=== PATIENT | female | born 1995 | race Caucasian/White ===

== ENCOUNTER 2019-04-24 07:49 | Emergency (ER) | payer OTHER ==
[2019-04-24 08:12] LABS: Urine Blood NEGATIVE (NEG); Urine Glucose NEGATIVE (NEG); Urine Protein NEGATIVE (NEG); Urine pH 6.5 (5.0-7.0)
--- NOTE | 2019-04-24 08:13 | EDPHYS ---
Physician Documentation [facility] Name: Anusha Gunn Age: 23 yrs Sex: Female : 1995 Arrival Date: 04/24/2019 Time: 07:52 Bed 20 Private MD: ED Physician Patricio Carr HPI: 04/24 08:07 This 23 yrs old Female presents to ER via Ambulatory with complaints of Back snw Pain. 08:07 The patient presents with pain that is acute, with no known mechanism of injury. The snw symptoms are located in the low back. Onset: The symptoms/episode began/occurred acutely. The pain does not radiate. Associated signs and symptoms: Pertinent negatives: fever, joint pain. The problem was sustained from unknown cause. Severity of symptoms: At their worst the symptoms were mild, moderate. The patient has experienced a previous episode. The patient has not recently seen a physician. Historical: - Allergies: 08:01 No Known Allergies; sv - Home Meds: 08:01 Abilify oral oral [Active]; sv - PMHx: 08:01 Bipolar disorder; sv - PSHx: 08:01 None; sv - Immunization history:: Flu vaccine is up to date. - Coronavirus screen:: The patient has NOT traveled to [place], [place], or [place] in the past 14 days. Proceed with normal triage process as indicated. The patient has NOT had contact with known/suspected case of Coronavirus? Proceed with normal triage procedures. - Social history:: Smoking status: Patient denies any tobacco usage or history of. - Ebola Screening: : No symptoms or risks identified at this time. ROS: 08:05 Constitutional: Negative for fever, chills, and weight loss, Eyes: Negative for injury, snw pain, redness, and discharge, ENT: Negative for injury, pain, and discharge, Neck: Negative for injury, pain, and swelling, Cardiovascular: Negative for chest pain, palpitations, and edema, Respiratory: Negative for shortness of breath, cough, wheezing, and pleuritic chest pain, Abdomen/GI: Negative for abdominal pain, nausea, vomiting, diarrhea, and constipation, MS/Extremity: Negative for injury and deformity, Skin: Negative for injury, rash, and discoloration, Neuro: Negative for headache, weakness, numbness, tingling, and seizure, Psych: Negative for depression, anxiety, suicide ideation, homicidal ideation, and hallucinations. 08:05 Back: Positive for of the low back area. 08:05 : Positive for vaginal discharge. Exam: 08:05 Head/Face: Normocephalic, atraumatic. Eyes: Pupils equal round and reactive to light, snw extra-ocular motions intact. Lids and lashes normal. Conjunctiva and sclera are non-icteric and not injected. Cornea within normal limits. Periorbital areas with no swelling, redness, or edema. ENT: Nares patent. No nasal discharge, no septal abnormalities noted. Tympanic membranes are normal and external auditory canals are clear. Oropharynx with no redness, swelling, or masses, exudates, or evidence of obstruction, uvula midline. Mucous membranes moist. Neck: Trachea midline, no thyromegaly or masses palpated, and no cervical lymphadenopathy. Supple, full range of motion without nuchal rigidity, or vertebral point tenderness. No Meningismus. Chest/axilla: Normal chest wall appearance and motion. Nontender with no deformity. No lesions are appreciated. Cardiovascular: Regular rate and rhythm with a normal S1 and S2. No gallops, murmurs, or rubs. Normal PMI, no JVD. No pulse deficits. Respiratory: Lungs have equal breath sounds bilaterally, clear to auscultation and percussion. No rales, rhonchi or wheezes noted. No increased work of breathing, no retractions or nasal flaring. Abdomen/GI: Soft, non-tender, with normal bowel sounds. No distension or tympany. No guarding or rebound. No evidence of tenderness throughout. Back: No spinal tenderness. No costovertebral tenderness. Full range of motion. Skin: Warm, dry with normal turgor. Normal color with no rashes, no lesions, and no evidence of cellulitis. MS/ Extremity: Pulses equal, no cyanosis. Neurovascular intact. Full, normal range of motion. Neuro: Awake and alert, GCS 15, oriented to person, place, time, and situation. Cranial nerves II-XII grossly intact. Motor strength 5/5 in all extremities. Sensory grossly intact. Cerebellar exam normal. Normal gait. Psych: Awake, alert, with orientation to person, place and time. Behavior, mood, and affect are within normal limits. 08:05 Constitutional: The patient appears alert, awake, non-toxic. Vital Signs: 08:01 BP 102 / 68; Pulse 86; Resp 16; Temp 97; Pulse Ox 100% ; Weight 56.25 kg; Height 5 ft. sv 3 in. (160.02 cm); Pain 0/10; 08:01 Body Mass Index 21.97 (56.25 kg, 160.02 cm) sv MDM: 07:54 Patient medically screened. [facility] 09:17 Data reviewed: vital signs, nurses notes. Data interpreted: Pulse oximetry: on room air snw is 100 %. Interpretation: normal. Counseling: I had a detailed discussion with the patient and/or guardian regarding: the historical points, exam findings, and any diagnostic results supporting the discharge/admit diagnosis, lab results, the need for outpatient follow up, to return to the emergency department if symptoms worsen or persist or if there are any questions or concerns that arise at home. Counseling: I had a detailed discussion with the patient and/or guardian regarding: safe sex. Special discussion: Based on the history and exam findings, there is no indication for further emergent testing or inpatient evaluation. I discussed with the patient/guardian the need to see the OB Gyne specialist for further evaluation of the symptoms. I discussed with the patient/guardian the need to see the primary care provider for further evaluation of the symptoms. 04/24 07:55 Order name: Urine Culture [facility] 04/24 07:55 Order name: Urine Microscopic Only [facility] 04/24 08:07 Order name: Urine Dipstick--Ancillary (enter results); Complete Time: 08:14 eb 04/24 08:07 Order name: Urine --Ancillary (enter results); Complete Time: 08:14 eb 04/24 07:55 Order name: Urine Test (obtain specimen); Complete Time: 08:04 snw 04/24 07:55 Order name: Urine Dipstick-Ancillary (obtain specimen); Complete Time: 08:04 snw Administered Medications: 08:34 Drug: Zithromax 1 grams Route: PO; 08:34 Drug: Flagyl 2 grams Route: PO; 08:35 Drug: Rocephin (cefTRIAXone) 1 grams Route: IM; Site: right gluteus; Disposition: 04/24/19 08:12 Discharged to Home. Impression: Unprotected intercourse, vaginal discharge, Low back pain. - Condition is Stable. - Discharge Instructions: Back Pain, Adult, Sexually Transmitted Disease, Rehydration, Adult, Heat Therapy, Safe Sex. - Prescriptions for Doxycycline Hyclate 100 mg Oral Tablet - take 1 tablet by ORAL route every 12 hours; 28 tablet. - Work release form, Medication Reconciliation Form, Thank You Letter, Antibiotic Education, Prescription Opioid Use form. - Follow up: Emergency Department; When: As needed; Reason: Fever > 102 F, Worsening of condition. Follow up: Private Physician; When: 2 - 3 days; Reason: Recheck today's complaints, Continuance of care, Re-evaluation by your physician. Addendum: 04/26/2019 07:00 Co-signature as Attending Physician, Patricio Carr MD I agree with the assessment and c frey plan of care. Signatures: Dispatcher [employer] Neela Martinez, RN RN Patricio Bradford MD MD cha Therrien, Shelly, CLINICAL DATA MANAGEMENT MANAGER-C CLINICAL DATA MANAGEMENT MANAGER-Csnw Mendy Polanco RN RN Corrections: (The following items were deleted from the chart) 04/24 08:57 08:12 04/24/2019 08:12 Discharged to Home. Impression: Unprotected intercourse, vaginal sv discharge; Low back pain. Condition is Stable. Forms are Medication Reconciliation Form, Thank You Letter, Antibiotic Education, Prescription Opioid Use. Follow up: Emergency Department; When: As needed; Reason: Fever > 102 F, Worsening of condition. Follow up: Private Physician; When: 2 - 3 days; Reason: Recheck today's complaints, Continuance of care, Re-evaluation by your physician. snw
--- NOTE | 2019-04-24 08:13 | ER ---
Nurse's Notes [facility] Name: Anusha Gunn Age: 23 yrs Sex: Female : 1995 Arrival Date: 04/24/2019 Time: 07:52 Bed 20 Private MD: Diagnosis: Unprotected intercourse, vaginal discharge;Low back pain Presentation: 04/24 07:59 Presenting complaint: Patient states: yellow vaginal discharge x 2 weeks, low back pain sv x 3 days, has had unprotected intercourse recently. Transition of care: patient was not received from another setting of care. Onset of symptoms was March 2019. Risk Assessment: Do you want to hurt yourself or someone else? Patient reports no desire to harm self or others. Initial Sepsis Screen: Does the patient meet any 2 criteria? No. Patient's initial sepsis screen is negative. Does the patient have a suspected source of infection? No. Patient's initial sepsis screen is negative. Care prior to arrival: None. 07:59 Method Of Arrival: Ambulatory sv 07:59 Acuity: MARTHA 3 sv Triage Assessment: 08:03 General: Appears in no apparent distress. comfortable, slender, Behavior is calm, sv cooperative, appropriate for age. Pain: Denies pain. Neuro: Level of Consciousness is awake, alert, obeys commands, Oriented to person, place, time, situation, Moves all extremities. Full function Gait is steady. Respiratory: Respiratory effort is even, unlabored, Respiratory pattern is regular, symmetrical. : Reports discharge, from vagina that is malodorous, yellow, since 2 weeks. Derm: Skin is pink, warm \T\ dry. Musculoskeletal: Range of motion: intact in all extremities, Reports intermittent low back pain x 3 days. Historical: - Allergies: 08:01 No Known Allergies; sv - Home Meds: 08:01 Abilify oral oral [Active]; sv - PMHx: 08:01 Bipolar disorder; sv - PSHx: 08:01 None; sv - Immunization history:: Flu vaccine is up to date. - Coronavirus screen:: The patient has NOT traveled to [place], [place], or [place] in the past 14 days. Proceed with normal triage process as indicated. The patient has NOT had contact with known/suspected case of Coronavirus? Proceed with normal triage procedures. - Social history:: Smoking status: Patient denies any tobacco usage or history of. - Ebola Screening: : No symptoms or risks identified at this time. Screenin:38 Abuse screen: Denies threats or abuse. Nutritional screening: No deficits noted. Tuberculosis screening: No symptoms or risk factors identified. Fall Risk None identified. Assessment: 08:50 Reassessment: Patient appears in no apparent distress at this time. No changes from sv previously documented assessment. Patient and/or family updated on plan of care and expected duration. Pain level reassessed. Patient is alert, oriented x 3, equal unlabored respirations, skin warm/dry/pink. Vital Signs: 08:01 BP 102 / 68; Pulse 86; Resp 16; Temp 97; Pulse Ox 100% ; Weight 56.25 kg; Height 5 ft. sv 3 in. (160.02 cm); Pain 0/10; 08:01 Body Mass Index 21.97 (56.25 kg, 160.02 cm) sv ED Course: 07:52 Patient arrived in ED. mr 07:53 Leti Page FNP-C [facility]. snw 07:53 Patricio Carr MD is Attending Physician. snw 07:59 Neela Guerra RN is Primary Nurse. sv 08:00 Triage completed. sv 08:02 Arm band placed on Patient placed in an exam room, on a stretcher, on pulse oximetry. sv 08:02 Patient has correct armband on for positive identification. Placed in gown. Bed in low sv position. Call light in reach. Pulse ox on. NIBP on. Door closed. Head of bed elevated. 08:38 No provider procedures requiring assistance completed. Patient did not have IV access during this emergency room visit. Administered Medications: 08:34 Drug: Zithromax 1 grams Route: PO; ah 08:34 Drug: Flagyl 2 grams Route: PO; 08:35 Drug: Rocephin (cefTRIAXone) 1 grams Route: IM; Site: right gluteus; Outcome: 08:12 Discharge ordered by . snw 08:50 Patient left the ED. sv 08:50 Discharged to home ambulatory. sv 08:50 Condition: stable 08:50 Discharge instructions given to patient, Instructed on discharge instructions, follow up and referral plans. medication usage, safe sex practices, Demonstrated understanding of instructions, follow-up care, medications, Prescriptions given X 1. Addendum: 04/26/2019 09:28 Addendum: Culture Results: Positive urine culture. No further action required. Bacteria s s sensitive to prescribed antibiotic. Signatures: Neela Guerra RN RN sv Therrien, Shelly, CURTAIN CLEANER-C CURTAIN CLEANER-Csnw Emeli Vázquez mr America Hubbard RN RN Mendy Polanco RN RN Corrections: (The following items were deleted from the chart) 04/24 08:58 08:57 Patient left the ED. karmen peraza
[2019-04-24] MEDS ORDERED: AZITHROMYCIN 250 MG TAB ONE (08:15)
[2019-04-24] MEDS ORDERED: metroNIDAZOLE 500 MG TABLET ONE (08:15)
[2019-04-24] MEDS ORDERED: LIDOCAINE 1% MPF 2 ML AMPULE ONE (08:15)
[2019-04-24] MEDS ORDERED: CEFTRIAXONE 1000 MG/VIAL ONE (08:15)
[2019-04-24 09:03] VITALS: BP 102/68; TEMP 97; O2SAT 100
[2019-04-24 09:16] LABS: Urine Bacteria 20-50 /HPF (<20); Urine RBC <5 /HPF (NONE SEEN)
[2019-04-24 09:17] LABS: Urine Culture Reflex Order NOT NEEDED
== END 2019-04-24 08:57 | disposition home or self-care (01) ==
LOC: ER 07:49
DX: N89.8 Other specified noninflammatory disorders of vagina (principal); Z11.3 Encounter for screening for infections with a predominantly sexual mode of transmission; F31.9 Bipolar disorder, unspecified
CPT/HCPCS: 87088; 87086; 81025; 87077; 87186; 96372; 99283; J2001; 81003; 81015

== ENCOUNTER 2019-06-15 17:08 | Emergency (ER) | payer OTHER ==
--- NOTE | 2019-06-15 17:19 | EDPHYS ---
Physician Documentation [facility] Name: Anusha Gunn Age: 23 yrs Sex: Female : 1995 Arrival Date: 06/15/2019 Time: 17:10 Bed 17 Private MD: ED Physician Jorgito Mendoza HPI: 06/14 17:14 This 23 yrs old Female presents to ER via Unassigned with complaints of rn Probable Seizure. 17:14 The patient presents after having a single isolated seizure. Character of seizure(s): rn Motor activity: generalized, Incontinence: none, Circulation: the patient did not experience evidence of pulse disturbance. Seizure onset: just prior to arrival. Associated injury: The patient did not suffer any apparent associated injury. Current symptoms: Currently, the patient is not experiencing any symptoms. The patient has experienced similar episodes in the past. Per EMS, mother called 911 after patient had seizure. Single episode. Has had 2 times before. States tends to happen when doesn't take her abilify. Denies preceding chest pain/sob/abd pain. Denies drug use. Denies . States does not want any testing, that this has happened before and plans to see her psychiatrist. Denies any symptoms currently. . 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 tw2 Historical: - Allergies: 17:16 No Known Allergies; ll1 - PMHx: 17:16 Bipolar disorder; ll1 - Immunization history:: Adult Immunizations up to date. - Social history:: Smoking status: Patient denies any tobacco usage or history of. Patient/guardian denies using alcohol, street drugs, tobacco products. - Family history:: not pertinent. - Hospitalizations: : No recent hospitalization is reported. ROS: 17:14 Constitutional: Negative for fever, chills, and weight loss, Eyes: Negative for injury, rn pain, redness, and discharge, Neck: Negative for injury, pain, and swelling, Cardiovascular: Negative for chest pain, palpitations, and edema, Respiratory: Negative for shortness of breath, cough, wheezing, and pleuritic chest pain, Abdomen/GI: Negative for abdominal pain, nausea, vomiting, diarrhea, and constipation, MS/Extremity: Negative for injury and deformity, Skin: Negative for injury, rash, and discoloration, Neuro: Negative for headache, weakness, numbness, tingling Exam: 17:14 Constitutional: This is a well developed, well nourished patient who is awake, alert, rn and in no acute distress. Head/Face: Normocephalic, atraumatic. Eyes: Pupils equal round and reactive to light, extra-ocular motions intact. Lids and lashes normal. Conjunctiva and sclera are non-icteric and not injected. Cornea within normal limits. Periorbital areas with no swelling, redness, or edema. ENT: No oral trauma, mmm Cardiovascular: Regular rate and rhythm. No pulse deficits. Respiratory: No increased work of breathing, no retractions or nasal flaring. Abdomen/GI: soft, non-tender MS/ Extremity: Pulses equal, no cyanosis. Neurovascular intact. Full, normal range of motion. Equal circumference. Neuro: Awake and alert, GCS 15, oriented to person, place, time, and situation. Cranial nerves II-XII grossly intact. Motor strength 5/5 in all extremities. Sensory grossly intact. Cerebellar exam normal. Vital Signs: 17:11 BP 107 / 82; Pulse 117; Resp 16; Temp 98.3; Pulse Ox 96% ; Pain 0/10; ll1 17:23 Pulse 94; ll1 [place] Coma Score: 17:17 Eye Response: spontaneous(4). Verbal Response: oriented(5). Motor Response: obeys ll1 commands(6). Total: 15. MDM: 17:13 Patient medically screened. rn 17:14 Differential diagnosis: seizure. Data reviewed: vital signs, nurses notes. Refusal of rn service: The patient/guardian displays adequate decision making capability and despite a detailed discussion of alternatives, benefits, risks, and consequences refuses: CT Scan, all lab tests, Medications, all X-rays. Special discussion: I discussed with the patient/guardian in detail that at this point there is no indication for admission to the hospital. It is understood, however, that if the symptoms persist or worsen the patient needs to return immediately for re-evaluation. Based on the history and exam findings, there is no indication for further emergent testing or inpatient evaluation. I discussed with the patient/guardian the need to see the neurologist for further evaluation of the symptoms. I discussed with the patient/guardian the need to see the primary care provider for further evaluation of the symptoms. I discussed with the patient/guardian the need to see the psychiatrist for further evaluation of the symptoms. ED course: Patient again declines treatment or evaluation, has normal neuro exam, mother here, GCS 15, will dc home per her wishes. . Administered Medications: No medications were administered Disposition: 06/15/19 17:18 Discharged to Home. Impression: Epilepsy and recurrent seizures. - Condition is Stable. - Discharge Instructions: Seizure, Adult. - Medication Reconciliation Form, Thank You Letter, Antibiotic Education, Prescription Opioid Use form. - Follow up: Anish Varma MD; When: As needed; Reason: Recheck today's complaints, Re-evaluation by your physician. - Problem is an ongoing problem. - Symptoms have improved. Signatures: Jorgito Mendoza MD MD rn Rowena Son RN RN 2 Beatrice Sidhu RN RN ll1 Corrections: (The following items were deleted from the chart) 17:28 17:18 06/15/2019 17:18 Discharged to Home. Impression: Epilepsy and recurrent seizures. tw2 Condition is Stable. Forms are Medication Reconciliation Form, Thank You Letter, Antibiotic Education, Prescription Opioid Use. Follow up: Anish Varma; When: As needed; Reason: Recheck today's complaints, Re-evaluation by your physician. Problem is an ongoing problem. Symptoms have improved. rn
--- NOTE | 2019-06-15 17:19 | ER ---
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 EMS states she was postictal upon arrival. Patient states she feels fine. No pain. Alert and oriented, couldn't remember correct president. Coronavirus screen: Patient denies fever greater than 100.4F, cough, shortness of breath, or difficulty breathing. Proceed with normal triage process. Ebola Screen: Patient denies travel to an Ebola-affected area in the 21 days before illness onset. Initial Sepsis Screen: Does the patient meet any 2 criteria? HR > 90 bpm. No. Patient's initial sepsis screen is negative. Does the patient have a suspected source of infection? No. Patient's initial sepsis screen is negative. Risk Assessment: Do you want to hurt yourself or someone else? Patient reports no desire to harm self or others. 17:11 Acuity: MARTHA 4 ll1 17:11 Method Of Arrival: EMS: [facility] Triage Assessment: 17:17 General: Appears in no apparent distress. Behavior is calm, cooperative. Pain: Denies ll1 pain. Neuro: Level of Consciousness is awake, alert, Oriented to person, place, time, situation, Statistician Mathematical are equal bilaterally Moves all extremities. Full function Gait is steady, Speech is normal, Facial symmetry appears normal, Pupils are PERRLA, Denies headache Seizure activity reported prior to arrival. Type of seizure: clonic seizure. Seizure lasted approximately 3 minutes. Patient was postictal upon EMS arrival. 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 tw2 Historical: - Allergies: 17:16 No Known Allergies; ll1 - PMHx: 17:16 Bipolar disorder; ll1 - Immunization history:: Adult Immunizations up to date. - Social history:: Smoking status: Patient denies any tobacco usage or history of. Patient/guardian denies using alcohol, street drugs, tobacco products. - Family history:: not pertinent. - Hospitalizations: : No recent hospitalization is reported. Screenin:12 Abuse screen: Denies threats or abuse. Nutritional screening: No deficits noted. tw2 Tuberculosis screening: No symptoms or risk factors identified. Fall Risk None identified. Assessment: 17:21 General: Appears in no apparent distress. Behavior is calm, cooperative. Pain: Denies ll1 pain. Neuro: Level of Consciousness is awake, alert, Oriented to person, place, time, situation, Statistician Mathematical are equal bilaterally Moves all extremities. Full function Gait is steady, Speech is normal, Facial symmetry appears normal, Denies difficulty swallowing, headache. Cardiovascular: No deficits noted. Respiratory: No deficits noted. GI: No deficits noted. Vital Signs: 17:11 BP 107 / 82; Pulse 117; Resp 16; Temp 98.3; Pulse Ox 96% ; Pain 0/10; ll1 17:23 Pulse 94; ll1 [place] Coma Score: 17:17 Eye Response: spontaneous(4). Verbal Response: oriented(5). Motor Response: obeys ll1 commands(6). Total: 15. ED Course: 17:10 Patient arrived in ED. ll1 17:10 Beatrice Siduh, RN is Primary Nurse. ll1 17:10 Bed in low position. Call light in reach. Side rails up X2. Seizure precautions tw2 initiated. environmental monitoring technician on. Pulse ox on. NIBP on. 17:13 Jogrito Mendoza MD is Attending Physician. rn 17:14 Triage completed. ll1 17:17 Arm band placed on. ll1 17:18 Anish Varma MD is Referral Physician. rn 17:20 No provider procedures requiring assistance completed. Maintain EMS IV. Dressing ll1 intact. Good blood return noted. Site clean \T\ dry. Gauge \T\ site: 20 G R AC. 17:28 IV discontinued, intact, bleeding controlled, No redness/swelling at site. Pressure tw2 dressing applied. Administered Medications: No medications were administered Outcome: 17:18 Discharge ordered by . rn 17:27 Discharged to home ambulatory. tw2 17:27 Condition: stable 17:27 Discharge instructions given to patient, Instructed on discharge instructions, follow up and referral plans. Demonstrated understanding of instructions, follow-up care. 17:28 Patient left the ED. tw2 Signatures: Jorgito Mendoza MD MD rn Wise, Tara, RN RN tw2 Nahum, Lynsay, RN RN ll1
[2019-06-15 17:44] VITALS: BP 107/82; TEMP 98.3; O2SAT 96
== END 2019-06-15 17:28 | disposition home or self-care (01) ==
LOC: ER 17:08
DX: G40.802 Other epilepsy, not intractable, without status epilepticus (principal); F31.9 Bipolar disorder, unspecified
CPT/HCPCS: 99284

== ENCOUNTER 2019-06-28 11:47 | Emergency (ER) | payer OTHER ==
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
[2019-06-28 12:49] VITALS: BP 121/83; TEMP 97.9; O2SAT 100
== END 2019-06-28 12:36 | disposition home or self-care (01) ==
LOC: ER 11:47
DX: S09.93XA Unspecified injury of face, initial encounter (principal); S09.90XA Unspecified injury of head, initial encounter; Y04.2XXA Assault by strike against or bumped into by another person, initial encounter; Y93.9 Activity, unspecified; Y92.009 Unspecified place in unspecified non-institutional (private) residence as the place of occurrence of the external cause; F31.9 Bipolar disorder, unspecified; G40.909 Epilepsy, unspecified, not intractable, without status epilepticus
CPT/HCPCS: 70450; 70486; 72125; 76377; 99283

== ENCOUNTER 2020-04-24 10:11 | Emergency (ER) | payer OTHER ==
--- OUTSIDE RECORDS SUMMARY | 2020-04-24 10:38 | XMS REPORT | Summary of Care ---
:1995 Author Organization [facility] - Health Address [address] [place] [address] Care Team Providers Name Role Phone Chris Ward Primary Care Provider Encounter Details Date Type Department Care Team Description 02/01/2020 Orders Only [facility] Doctor Unassigned, No [address] [facility] [place] [address] [address] [facility] [place] [phone] Allergies No Known Allergiesdocumented as of this encounter (statuses as of 02/01/2020) Medications No known medicationsdocumented as of this encounter (statuses as of 02/01/2020) Active Problems No known active problemsdocumented as of this encounter (statuses as of 02/01/2020) Social History Tobacco Use Types Packs/Day Years Used Date Never Assessed Sex Assigned at Date Recorded Not on file COVID-19 Exposure Response Date Recorded In the last month, have you been in contact with No / Unsure 02/01/2020 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 documented as of this encounter Last Filed Vital Signs Not on filedocumented in this encounter Plan of Treatment Date Type Specialty Care Team Description 02/01/2020 Initial Obstetrics & Adum, Kellie Bernstein MD Visit Gynecology [address] [place] [address] [place] [address] Health Maintenance Due Date Last Done Comments VARICELLA VACCINES (1 of 2 - 2-dose 1998 childhood series) MENINGOCOCCAL B VACCINES (1 of 2 - 09/14/2007 Risk Bexsero 2-dose series) HPV VACCINES (1 - 2-dose series) 2008 Depression Screening 2009 CHLAMYDIA SCREENING 2013 DTaP,Tdap,and Td Vaccines (1 - 2016 Tdap) PAP SMEAR 2018 INFLUENZA VACCINE (#1) 2019 MENINGOCOCCAL VACCINE Aged Out No longer eligible based on patient's age to complete this topic PNEUMOCOCCAL 0-64 YEARS COMBINED Aged Out No longer eligible based on SERIES patient's age to complete this topic documented as of this encounter Procedures Procedure Name Priority Date/Time Associated Diagnosis Comme nts CONSENT/REFUSAL FOR Routine 02/01/2020 10:26 AM 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
--- OUTSIDE RECORDS SUMMARY | 2020-04-24 10:38 | XMS REPORT | Continuity of Care Document ---
:1995 Author Organization [facility] t Address [address] [place] [address] Care Team Providers Name Role Phone Amandeep Marrufo MD Attending Clinician 2, Lab Attending Clinician Unavailable Doctor Unassigned, Name Attending Clinician Unavailable Clinton Corral MD Attending Clinician Tony Brunson MD Attending Clinician Problems This patient has no known problems. Allergies, Adverse Reactions, Alerts This patient has no known allergies or adverse reactions. Medications This patient has no known medications. Procedures This patient has no known procedures. Encounters Start End Encounter Admission Attending Care Care Encounter Source Date/Time Date/Time Type Type Clinicians Facility Department ID 2020-03-13 2020-03-13 [id number] 00:00:00 00:00:00 Kellie Rivera [id number] [place] [id number] Professio [phone] 2020-02-04 2020-02-04 [id number] 00:00:00 00:00:00 Management Kellie Rivera [id number] [place] [id number] Professio [phone] [address] 2020-02-04 2020-02-04 [address]phone [id number] 00:00:00 00:00:00 Kellie Rivera [id number] [place] [id number] Professio [phone] [facility] [address] [facility] 2020-02-03 2020-02-03 Case Adum, [facility] [id number] 00:00:00 00:00:00 Management Kellie Bernstein Miguel [id number] [place] [id number] Professio [phone] [facility] [address] [facility] 2020-02-01 2020-02-01 Budget Analyst 2, Adc Lab [facility] [id number] 11:43:58 11:58:58 Visit Miguel [id number] [place] [id number] Professio [phone] [facility] [address] [facility] 2020-02-01 2020-02-01 Initial Adum, [facility] [id number] 10:30:19 11:39:38 Kellie Bernstein Miguel [id number] Visit [place] [id number] [facility] [phone] [facility] [address] [facility] 2020-02-01 2020-02-01 Orders Doctor [place] [id number] 00:00:00 00:00:00 Only Unassigned, SARAH [id number] [place] [facility] [phone] [id number] 2019-10-17 2019-10-17 Emergency Andreas Corral [facility] [id number] 15:45:22 21:48:00 Lauryn Brunson [id number] [place] [id number] [place] [phone] [id number] Results This patient has no known results.
--- OUTSIDE RECORDS SUMMARY | 2020-04-24 10:38 | XMS REPORT | Summary of Care ---
:1995 Author Organization [facility] Address [address] [place] [address] Care Team Providers Name Role Phone Chris Ward Primary Care Provider Reason for Visit Reason Comments New Medication Encounter Details Date Type Department Care Team Description 02/03/2020 Case Management [facility] Women's Adum, Kellie Bernstein MD New Medication Healthcare- [address] [facility] [address], [address] [place] [phone] Allergies No Known Allergiesdocumented as of this encounter (statuses as of 02/03/2020) Medications Medication Sig Dispensed Refills Start Date End Date Status aripiprazole (ABILIFY Take by mouth. 0 Active ORAL) azithromycin 500 mg Take 2 tablets by 2 tablet 0 02/03/2020 Active tabletIndications: mouth daily. 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 documented as of this encounter Last Filed Vital Signs Not on filedocumented in this encounter Progress Notes Adum, Kellie L, MD - 02/03/2020 5:17 PM CSTAzithromycin 1 g sent in for chlamydia infection. RN will notify patient documented in this encounter Plan of Treatment Health Maintenance Due Date Last Done Comments [...] this topic documented as of this encounter Results Not on filedocumented in this encounter Visit Diagnoses Diagnosis Chlamydia infection - Primary Unspecified chlamydial infection, in con ditions classified elsewhere and of unspecified site documented in this encounter Insurance Payer Benefit Plan / Group Subscriber ID Effective Dates Phone Address Type AETNA AETNA CHOICE POS II [id number] 2018-Present POS documented as of this encounter
--- OUTSIDE RECORDS SUMMARY | 2020-04-24 10:38 | XMS REPORT | Summary of Care ---
:1995 Author Organization [facility] Address [address] [place] [address] Care Team Providers Name Role Phone Chris Ward Primary Care Provider Reason for Visit Reason Comments Notification Encounter Details Date Type Department Care Team Description 03/13/2020 Telephone [facility] Women's Kellie Marrufo MD Notification Healthcare- [address] [facility], [facility] [address] [place] [address] [place] [address] [phone] Allergies No Known Allergiesdocumented as of this encounter (statuses as of 03/15/2020) Medications Medication Sig Dispensed Refills Start Date End Date Status aripiprazole (ABILIFY Take by mouth. 0 Active ORAL) azithromycin 500 mg Take 2 tablets by 2 tablet 0 02/03/2020 Active tabletIndications: mouth daily. Chlamydia infection Nitrofurantoin&Nit. Take 1 capsule by 20 capsule 0 02/04/2020 Active Macrocryst (MACROBID) mouth 2 (two) 100 mg times daily. capsuleIndications: Urinary tract infection without hematuria, site unspecified documented as of this encounter (statuses as of 03/15/2020) Active Problems No known active problemsdocumented as of this encounter (statuses as of 03/15/2020) Social History Tobacco Use Types Packs/Day Years Used Date Never Smoker Smokeless Tobacco: Never Used Alcohol Use Drinks/Week oz/Week Comments Not Currently Sex Assigned at Date Recorded Not on file documented as of this encounter Last Filed Vital Signs Not on filedocumented in this encounter Miscellaneous Notes Telephone Encounter - Stephanie Amaral, RN - 03/13/2020 10:46 AM CSTI have spoken with patient regarding her concerns. She states that someone named Mercedes in the clinic gave her results to a personal friend and she wanted to report them for HIPAA violation. I adviseddiane is not anyone in the clinic by that name. She advised she will call back if she can get the correct name. 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 documented in this encounter Plan of Treatment Health Maintenance Due Date Last Done Comments VARICELLA VACCINES (1 of 2 - 1998 2-dose childhood series) MENINGOCOCCAL B VACCINES (1 of 2 - 09/14/2007 Risk Bexsero 2-dose series) HPV VACCINES (1 - 2-dose series) 2008 Depression Screening 2009 DTaP,Tdap,and Td Vaccines (1 - 2016 Tdap) PAP SMEAR 2018 INFLUENZA VACCINE (#1) 2019 CHLAMYDIA SCREENING 01/31/2021 02/01/2020 MENINGOCOCCAL VACCINE Aged Out No longer eligible based on patient's age to complete this topic PNEUMOCOCCAL 0-64 YEARS COMBINED Aged Out No longer eligible based on SERIES patient's age to complete this topic documented as of this encounter Results Not on filedocumented in this encounter Insurance Payer Benefit Plan / Group Subscriber ID Effective Dates Phone Address Type AETNA AETNA CHOICE POS II [id number] 2018-Present POS documented as of this encounter
--- OUTSIDE RECORDS SUMMARY | 2020-04-24 10:38 | XMS REPORT | Summary of Care ---
:1995 Author Organization [facility] Address [address] [place] [address] Care Team Providers Name Role Phone Chris Ward Primary Care Provider Reason for Visit Reason Comments New Medication UTI Encounter Details Date Type Department Care Team Description 02/04/2020 Case Management [facility] Women's Adum, Kellie Bernstein MD New Medication (UTI) Healthcare- [address], [address] [place] [phone] Allergies No Known Allergiesdocumented as of this encounter (statuses as of 02/04/2020) Medications Medication Sig Dispensed Refills Start Date [...] as of this encounter (statuses as of 02/04/2020) Active Problems No known active problemsdocumented as of this encounter (statuses as of 02/04/2020) Social History Tobacco Use Types Packs/Day Years Used Date Never Smoker Smokeless Tobacco: Never Used Alcohol Use Drinks/Week oz/Week Comments Not Currently Sex Assigned at Date Recorded Not on file COVID-19 Exposure Response Date Recorded In the last month, have you been in contact with No / Unsure 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 documented as of this encounter Last Filed Vital Signs Not on filedocumented in this encounter Progress Notes Kellie Marrufo MD - 02/04/2020 10:05 AM CSTSee Result note Kellie Marrufo MD documented in this encounter Plan of Treatment [...] filedocumented in this encounter Visit Diagnoses Diagnosis Urinary tract infection without hematuri a, site unspecified - Primary documented in this encounter Insurance Payer Benefit Plan / Group Subscriber ID Effective Dates Phone Address Type AETNA AETNA CHOICE POS [place] [id number] 2018-Present POS documented as of this encounter
--- OUTSIDE RECORDS SUMMARY | 2020-04-24 10:38 | XMS REPORT | Summary of Care ---
:1995 Author Organization [facility] Address [address] [place] [address] Care Team Providers Name Role Phone Chris Ward Primary Care Provider Reason for Visit Reason Comments Results Encounter Details Date Type Department Care Team Description 02/04/2020 Telephone [facility] Women's Kellie Marrufo MD Results Healthcare- [address] [facility], [facility] [address] [place] [address] [place] [address] [phone] Allergies No Known Allergiesdocumented as of this [...] with No / Unsure 02/01/2020 10:22 AM COMMUNITY REPRESENTATIVE someone who was confirmed 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 documented as of this encounter Last Filed Vital Signs Not on filedocumented in this encounter Miscellaneous Notes Telephone Encounter - Jaymie Cuadra MA - 02/04/2020 11:02 AM CSTSee result note. Patient is aware of lab results and verbalized understanding. UNITY REPRESENTATIVE Telephone Encounter - Angelika Sylvester - 02/04/2020 8:45 AM CSTPatient is returning a call regarding lab results and is requesting a call back. documented in this encounter Plan of Treatment [...] Address Type AETNA AETNA CHOICE POS II [id number] 2018-Present POS documented as of this encounter
--- OUTSIDE RECORDS SUMMARY | 2020-04-24 10:38 | XMS REPORT | Summary of Care ---
:1995 Author Organization [facility] Address [address] [place] [address] Care Team Providers Name Role Phone Chris Ward Primary Care Provider Reason for Visit Reason Comments LAB Encounter Details Date Type Department Care Team Description 02/01/2020 Credit Risk Review Officer Visit [facility] AdumKellie MD [address] [place] [address] [address] [place] [address] Professional Office 2, [facility] Lab examination or Building Phlebotomy test, ne gative Lab result Professional Office Building [address] [facility] [address], [address] [place] [address] Allergies No Known Allergiesdocumented as of this encounter (statuses as of 02/01/2020) Medications Medication Sig Dispensed Refills Start Date End Date Status aripiprazole (ABILIFY Take by mouth. 0 Active ORAL) documented as of this encounter (statuses as [...] with No / Unsure 02/01/2020 10:22 AM SENIOR TECHNICAL PROJECT MANAGER someone who was confirmed 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 documented as of this encounter Last Filed Vital Signs Not on filedocumented in this encounter Nursing Notes Neela Gutierrez - 02/01/2020 11:45 AM CST Venipuncture collection performed by clean technique on the both anticubitus. Total of 2 attempts were made. Slight pressure and a bandage/dressing were applied to the site(s). The patient experienced no complications. The following specimens were processed according to instructions and sent to [facility] laboratories per lab order on 02/01/20: LT BLUE SST 1 RED LAV PPT DK GREEN (LiHep) DK GREEN (SodH) ANNE DK BLUE (K2) DK BLUE (S) ACD Blood Culture NIPT/NTD documented in this encounter Plan of Treatment [...] filedocumented in this encounter Visit Diagnoses Diagnosis examination or test, negative result documented in this encounter documented as of this encounter
--- OUTSIDE RECORDS SUMMARY | 2020-04-24 10:38 | XMS REPORT | Summary of Care ---
:1995 Author Organization [facility] Address [address] [place] [address] Care Team Providers Name Role Phone Chris Ward Primary Care Provider Reason for Visit Reason Comments New OB Visit Encounter Details Date Type Department Care Team Description 02/01/2020 Initial [facility] Women's Adum, Isael Smith regnancy examination or test, negative result (Primary Dx); Visit Healthcare- MD Routine screening for STI (sexually varela smitted infection); [address] Urinary frequency [address] [facility] [address] [place] [address] Allergies No Known Allergiesdocumented as of this [...] with No / Unsure 02/01/2020 10:22 AM HARNESS WORKER someone who was confirmed 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 documented as of this encounter Last Filed Vital Signs Vital Sign Reading Time Taken Comments Blood Pressure 101/70 02/01/2020 10:51 AM HARNESS WORKER Pulse 87 02/01/2020 10:51 AM HARNESS WORKER Temperature 36.7 C (98.1 F) 02/01/2020 10:51 AM HARNESS WORKER Respiratory Rate 18 02/01/2020 10:51 AM HARNESS WORKER Oxygen Saturation - - Inhaled Oxygen Concentration - - Weight 55.8 kg (123 lb) 02/01/2020 10:51 AM HARNESS WORKER Height 160 cm (5' 3") 02/01/2020 10:51 AM HARNESS WORKER Body Mass Index 21.79 02/01/2020 10:51 AM HARNESS WORKER documented in this encounter Progress Notes Klelie Marrufo MD - 02/01/2020 10:30 AM CST Chief complaint: Chief Complaint Patient presents with New OB Visit Anusha Gunn is a 24 year-old who presents to clinic with concerns of being . Patient reports regular cycles and that her LMP was 01/04 but she took UPT at home because she had an random episode of unprovoked vaginal bleeding on 01/23 or 01/24. The bleeding was very light, last 3hours with no associated pelvic or abdominal pain. UPT was faintly positive and her friend told her it could be implantation bleeding. UPT in the office today was negative. She also reports recent increased frequency of micturition with no dysuria or hematuria. She declined pelvic examination but accepted GC/Clamydia screening- this will be done from a urine sample Histories OB History Para Term AB Living 2 2 SAB TAB Ectopic Multiple Live Births # Outcome Date GA Lbr Froilan/2nd Weight Sex Delivery Anes PTL Lv 2 AB 2019 1 AB Past Medical History: Diagnosis Date Anxiety Bipolar 1 disorder Family History Problem Relation Age of Onset No Significant Medical Problems Mother No Significant Medical Problems Father Cancer Maternal Grandmother Family Status Relation Name Status Mo Alive Fa Alive MGMo (Not Specified) No past surgical history on file. Social History Socioeconomic History Marital status: Single Spouse name: Not on file Number of children: Not on file Years of education: Not on file Highest education level: Not on file Occupational History Not on file Social Needs Financial resource strain: Not on file Food insecurity Worry: Not on file Inability: Not on file Transportation needs Medical: Not on file Non-medical: Not on file Tobacco Use Smoking status: Never Smoker Smokeless tobacco: Never Used Substance and Sexual Activity Alcohol use: Not Currently Drug use: Not Currently Sexual activity: Yes Partners: Male control/protection: None Lifestyle Physical activity Days per week: Not on file Minutes per session: Not on file Stress: Not on file Relationships Social connections Talks on phone: Not on file Gets together: Not on file Attends shinto service: Not on file Active member of club or organization: Not on file Attends meetings of clubs or organizations: Not on file Relationship status: Not on file Intimate partner violence Fear of current or ex partner: Not on file Emotionally abused: Not on file Physically abused: Not on file Forced sexual activity: Not on file Other Topics Concern Not on file Social History Narrative Patient feels safe at home, denies abuse. Social History Substance and Sexual Activity Sexual Activity Yes Partners: Male control/protection: None Genetic Screen Autism / Mental Retardation: No [place] Disease: No Congenital Heart Defect: No Cystic Fibrosis: No Down Syndrome: No Familial Dysautonomia: No Hemophilia or other Blood Disorders: No Fannin Chorea: No Maternal Metabolic Disorder--specify (eg. Type 1 Diabetes, PKU): No Muscular Dystrophy: No Neural Tube Defect: No Recurrent Loss or a Stillbirth: No Sickle Cell Disease or Trait: No Moo Sachs: No Teratological Substances (specify type & strength/dose) since LMP: No Thalassemia: No Other Inherited Genetic or Chromosomal Disorder (specify): No Labs No new labs Radiology No new radiology. Allergies Anusha has No Known Allergies. Medications Anusha has a current medication list which includes the following prescription(s): aripiprazole. Review of Systems Constitutional: Negative. HENT: Negative. Eyes: Negative. Respiratory: Negative. Breasts: Negative. Cardiovascular: Negative. Gastrointestinal: Negative. Genitourinary: Negative. Musculoskeletal: Negative. Skin: Negative. Neurological: Negative. Psychiatric/Behavioral: Negative. Endocrine: Endocrine negative BP 101/70 (BP Location: Left arm, Patient Position: Sitting, BP CUFF SIZE: Adult Medium) | Pulse 87 | Temp 36.7 C (98.1 F) (Oral) | Resp 18 | Ht 5' 3" (1.6 m) | Wt 123 lb (55.8 kg) | LMP 01/05/2020 | BMI 21.79 kg/m Pregravid BMI: Could not be calculated Physical Exam Vitals reviewed. Constitutional: She is oriented to person, place, and time. She appears well- developed and well-groomed. Neuro/Psychiatric: She has a normal mood and affect. She is oriented to person, place, and time. Skin: Skin normal. Assessment/Plan examination or test, negative result (primary encounter diagnosis) Comment:Explained that her UPT was negative today so will offer a serum hcg for confirmation- which she accepted Plan: POCT TEST, HCG, QUANTITATIVE, , GC & CHLAMYDIA AMPLIFIED ASSAY, URINE CULTURE, POCT URINALYSIS W/O SPECIFIC GRAVITY, TRICHOMONAS AMPLIFIED ASSAY, URINE CULTURE Routine screening for STI (sexually transmitted infection) Plan: GC & CHLAMYDIA AMPLIFIED ASSAY, TRICHOMONAS AMPLIFIED ASSAY Urinary frequency UA showed trace LE and protein- culture sent off Plan: URINE CULTURE, POCT URINALYSIS W/O SPECIFIC GRAVITY, URINE CULTURE This visit did not involve counseling and coordination that comprised more than 50% of the visit time. Kellie Marrufo MD documented in this encounter Plan of Treatment Name Type Priority Associated Diagnoses Order S chedule HCG, QUANTITATIVE, LAB Routine examination or 48 hours for 3 test, negative result Occurr ences starting 02/01/2020 unti l 03/01/2020 GC & CHLAMYDIA AMPLIFIED LAB Routine Routine screenin g for Ordered: 02/01/2020 ASSAY STI (sexually transmitted infection) URINE CULTURE LAB Routine Urinary frequency Expected: 02/01/2020, Expires: 2020 TRICHOMONAS AMPLIFIED LAB Routine Routine screening f or Ordered: 02/01/2020 ASSAY STI (sexually transmitted infection) Health Maintenance Due Date Last Done Comments [...] Name Priority Date/Time Associated Diagnosis Comme nts POCT URINALYSIS W/O Routine 02/01/2020 Urinary frequency Res ults for this SPECIFIC GRAVITY procedure a re in the results section . POCT TEST Routine 02/01/2020 examination Results for this or test, negative procedure are in the result results section . documented in this encounter Results POCT URINALYSIS W/O SPECIFIC GRAVITY (02/01/2020) Pathologist Sig nature POCT PH U 7 5 - 8 mg/dl POCT U LEUK EST Trace Negative - Negative POCT U NIT Negative Negative - Negative POCT U PROT Trace Negative - Negative POCT U GLU Negative Negative - Negative POCT U KETONE Negative Negative - Negative POCT U BLD Negative Negative - Negative Specimen Urine - URINE, CLEAN CATCH POCT TEST (02/01/2020) Pathologist Sig nature POCT PREG Negative On board controls acceptable Yes with C Line POCT PREG LOT # POCT PREG TEST DATE Specimen Urine - URINE, CLEAN CATCH documented in this encounter Visit Diagnoses Diagnosis examination or test, negative result - Primary Routine screening for STI (sexually varela smitted infection) Screening examination for venereal disea se Urinary frequency documented in this encounter documented as of this encounter
--- NOTE | 2020-04-24 12:46 | ER ---
Nurse's Notes [facility] Name: Anusha Gunn Age: 24 yrs Sex: Female : 1995 Arrival Date: 04/24/2020 Time: 10:15 Bed 30 Private MD: Diagnosis: Foreign body in vulva and vagina-removed Presentation: 04/24 11:14 Chief complaint: Patient states: didn't have a tampon so I used a make up sponge for my ca1 menstrual bleed. Can't fine it now. Been there since 3 days ago. Denies pain. Coronavirus screen: Client denies travel out of the [place] in the last 14 days. At this time, the client does not indicate any symptoms associated with coronavirus-19. Ebola Screen: Patient negative for fever greater than or equal to 101.5 degrees Fahrenheit, and additional compatible Ebola Virus Disease symptoms Patient denies exposure to infectious person. Patient denies travel to an Ebola-affected area in the 21 days before illness onset. No symptoms or risks identified at this time. Initial Sepsis Screen: Does the patient meet any 2 criteria? No. Patient's initial sepsis screen is negative. Does the patient have a suspected source of infection? No. Patient's initial sepsis screen is negative. Risk Assessment: Do you want to hurt yourself or someone else? Patient reports no desire to harm self or others. Onset of symptoms was April 24, 2020. 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 - Social history:: Smoking status: Patient denies any tobacco usage or history of. Screenin:44 Abuse screen: Denies threats or abuse. Denies injuries from another. Nutritional zb screening: No deficits noted. Tuberculosis screening: No symptoms or risk factors identified. Fall Risk None identified. Assessment: 12:41 General: Appears in no apparent distress. comfortable, Behavior is calm, cooperative, zb appropriate for age. Pain: Denies pain. Neuro: Level of Consciousness is awake, alert, obeys commands, Oriented to person, place, time. Cardiovascular: No deficits noted. Respiratory: No deficits noted. GI: Abdomen is flat, non-distended. 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 EENT: No deficits noted. Derm: Skin is intact, is healthy with good turgor, Skin is dry, Skin is normal, Skin temperature is warm. Musculoskeletal: Capillary refill < 3 seconds, in bilateral fingers. Range of motion: intact in all extremities. Vital Signs: 11:14 BP 100 / 72; Pulse 100; Resp 16 S; Temp 97.9(TE); Pulse Ox 100% on R/A; Weight 56.7 kg ca1 (R); Height 5 ft. 3 in. (160.02 cm) (R); Pain 0/10; 12:53 BP 110 / 70; Pulse 92; Resp 16; Pulse Ox 100% on R/A; zb 11:14 Body Mass Index 22.14 (56.70 kg, 160.02 cm) ca1 ED Course: 10:15 Patient arrived in ED. ag5 11:16 Triage completed. ca1 11:17 Arm band placed on right wrist. ca1 12:21 Patricio Dempsey PA is PHCP. cp 12:21 Lorin Hill MD is Attending Physician. cp 12:40 Denisha Burris RN is Primary Nurse. zb 12:44 Patient has correct armband on for positive identification. Door closed. Noise zb minimized. 12:44 No provider procedures requiring assistance completed. Patient did not have IV access zb during this emergency room visit. Administered Medications: 12:52 Drug: Augmentin 875 mg Route: PO; zb 12:53 Follow up: Response: Medication administered at discharge. zb Outcome: 12:45 Discharge ordered by MD. cp 12:53 Discharged to home ambulatory. zb 12:53 Condition: stable 12:53 Discharge instructions given to patient, Instructed on discharge instructions, follow up and referral plans. medication usage, women health and period education Demonstrated understanding of instructions, follow-up care, medications. 12:54 Patient left the ED. zb Signatures: Patricio Dempsey PA PA cp Acob, Cheryl, RN RN ca1 Lucio Cash ag5 Denisha Burris, RN RN zb
--- NOTE | 2020-04-24 12:47 | EDPHYS ---
Physician Documentation [facility] Name: Anusha Gunn Age: 24 yrs Sex: Female : 1995 Arrival Date: 04/24/2020 Time: 10:15 Bed 30 Private MD: ED Physician Lorin Hill HPI: 04/24 12:40 This 24 yrs old Female presents to ER via Ambulatory with complaints of cp Foreign body In Vagina. 12:40 The patient presents with vaginal discharge, that is malodorous vaginal foreign body. cp Onset: The symptoms/episode began/occurred 3 day(s) ago. Associated signs and symptoms: Pertinent negatives: fever, abdominal pain. Severity of symptoms: in the emergency department the symptoms are unchanged, despite home interventions. Patient reports placing make-up sponge in vagina for vaginal bleeding 3 days ago. Unable to retrieve sponge. Denies fever, denies abdominal pain. 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 - Social history:: Smoking status: Patient denies any tobacco usage or history of. ROS: 12:42 Constitutional: Negative for body aches, chills, fever, poor PO intake. cp 12:42 Cardiovascular: Negative for chest pain, palpitations. cp 12:42 Respiratory: Negative for cough, shortness of breath, wheezing. 12:42 Abdomen/GI: Negative for abdominal pain, nausea, vomiting, and diarrhea. 12:42 : Positive for vaginal foreign body, Negative for urinary symptoms. 12:42 Neuro: Negative for altered mental status, headache, weakness. 12:42 All other systems are negative. Exam: 12:44 Constitutional: The patient appears in no acute distress, alert, awake, comfortable, cp non-toxic, well developed, well nourished. 12:44 Head/Face: Normocephalic, atraumatic. cp 12:44 Eyes: Periorbital structures: appear normal, Sclera: no appreciated abnormality, Lids and lashes: appear normal, bilaterally. 12:44 Chest/axilla: Inspection: normal. 12:44 Cardiovascular: Rate: normal, Rhythm: regular. 12:44 Respiratory: the patient does not display signs of respiratory distress, Respirations: normal, no use of accessory muscles, no retractions, labored breathing, is not present. 12:44 Abdomen/GI: Inspection: abdomen appears normal, Palpation: abdomen is soft and non-tender, in all quadrants. 12:44 : Pelvic Exam: External exam: is normal, Speculum exam: no bleeding is noted, no cervicitis, os that is closed, bimanual exam reveals no cervical motion tenderness, no uterine tenderness, no adnexa tenderness or masses bilaterally, discharge, malodorous, brown, the nurse was present for the exam. 12:44 Skin: cellulitis, is not appreciated, no rash present. cp Vital Signs: 11:14 BP 100 / 72; Pulse 100; Resp 16 S; Temp 97.9(TE); Pulse Ox 100% on R/A; Weight 56.7 kg ca1 (R); Height 5 ft. 3 in. (160.02 cm) (R); Pain 0/10; 12:53 BP 110 / 70; Pulse 92; Resp 16; Pulse Ox 100% on R/A; zb 11:14 Body Mass Index 22.14 (56.70 kg, 160.02 cm) ca1 Procedures: 12:42 Foreign Body Removal: make-up sponge, from the vagina, by ring forceps. The patient cp tolerated the removal well. MDM: 12:25 Patient medically screened. cp 12:45 Differential diagnosis: urinary tract infection, vaginosis, sepsis, toxic shock cp syndrome. 12:45 Data reviewed: vital signs, nurses notes, and as a result, I will discharge patient. cp Counseling: I had a detailed discussion with the patient and/or guardian regarding: the historical points, exam findings, and any diagnostic results supporting the discharge/admit diagnosis, to return to the emergency department if symptoms worsen or persist or if there are any questions or concerns that arise at home. Response to treatment: the patient's symptoms have markedly improved after treatment, and as a result, I will discharge patient. 04/24 12:25 Order name: Pelvic Exam Setup; Complete Time: 12:41 cp Administered Medications: 12:52 Drug: Augmentin 875 mg Route: PO; zb 12:53 Follow up: Response: Medication administered at discharge. zb Disposition: 13:00 Chart complete. cp 18:18 Co-signature as Attending Physician, Lorin Hill MD. ma2 Disposition: 04/24/20 12:45 Discharged to Home. Impression: Foreign body in vulva and vagina - removed. - Condition is Stable. - Discharge Instructions: Vaginal Foreign Body. - Prescriptions for Augmentin 875- 125 mg Oral Tablet - take 1 tablet by ORAL route every 12 hours for 10 days; 20 tablet. - Medication Reconciliation Form, Thank You Letter, Antibiotic Education, Prescription Opioid Use form. - Follow up: Private Physician; When: 1 - 2 days; Reason: Worsening of condition. - Problem is new. - Symptoms have improved. Signatures: Patricio Dempsey PA PA cp Alzahri, Mohammad, MD MD wv2 Jazmin Negron RN Denisha Knight RN RN zcarlos Corrections: (The following items were deleted from the chart) 12:54 12:45 04/24/2020 12:45 Discharged to Home. Impression: Foreign body in vulva and vagina zb - removed. Condition is Stable. Forms are Medication Reconciliation Form, Thank You Letter, Antibiotic Education, Prescription Opioid Use. Follow up: Private Physician; When: 1 - 2 days; Reason: Worsening of condition. Problem is new. Symptoms have improved. cp
[2020-04-24] MEDS ORDERED: AMOX/K CLAV 875 MG TAB ONE (13:03)
[2020-04-24 13:28] VITALS: BP 154/86; TEMP 97.7; O2SAT 100
== END 2020-04-24 12:54 | disposition home or self-care (01) ==
LOC: ER 10:11
DX: T19.2XXA Foreign body in vulva and vagina, initial encounter (principal); X58.XXXA Exposure to other specified factors, initial encounter
CPT/HCPCS: 99283

== ENCOUNTER 2020-06-11 10:25 | Emergency (ER) | payer OTHER ==
--- OUTSIDE RECORDS SUMMARY | 2020-06-11 10:28 | XMS REPORT | Continuity of Care Document ---
:1995 Author Organization [facility] t Address [address] [place] [address] Care Team Providers Name Role Phone Amandeep [...] Clinicians Facility Department ID 2020-03-13 2020-03-13 [phone] 00:00:00 00:00:00 Kellie Rivera [id number] [place] [id number] Professio [phone] [address] 2020-02-04 2020-02-04 [facility] [id number] 00:00:00 00:00:00 Management Kellie Rivera [id number] [place] [id number] Professio [phone] [address] 2020-02-04 2020-02-04 [phone] 00:00:00 00:00:00 Kellie Rivera [id number] [place] [id number] Professio [phone] [facility] [address] [facility] 2020-02-03 2020-02-03 Case Adum, [facility] [id number] 00:00:00 00:00:00 Management Kellie Bernstein Miguel [id number] [place] [id number] Professio [phone] [facility] [address] [facility] 2020-02-01 2020-02-01 Merchant Miller 2, Adc Lab [facility] [id number] 11:43:58 11:58:58 Visit Miguel [id number] [place] [id number] Professio [phone] [facility] 353 [facility] 2020-02-01 2020-02-01 Initial Adum, [facility] [id number] 10:30:19 11:39:38 Kellie Bernstein Miguel [id number] Visit [place] [id number] [facility] [phone] [facility] 134 [facility] 2020-02-01 2020-02-01 Orders Doctor [place] [id number] 00:00:00 00:00:00 Only Unassigned, SARAH [id number] [place] [facility] [phone] [id number] 2019-10-17 2019-10-17 Emergency Andreas Corral [facility] 1.2.84 [id number] [id number] 15:45:22 21:48:00 Lauryn Brunson [id number] [place] [id number] [place] [phone] [phone] Results This patient has no known results.
[2020-06-11 11:22] LABS: Urine Blood NEGATIVE (NEG); Urine Glucose NEGATIVE (NEG); Urine Protein NEGATIVE (NEG)
[2020-06-11 11:42] LABS: Urine Amorphous Sediment 3+ /HPF (NONE SEEN); Urine Bacteria <20 /HPF (<20); Urine RBC NONE SEEN /HPF (NONE SEEN)
[2020-06-11 12:05] LABS: Absolute Lymphocytes (CBC) 2.8 K/uL (0.7-4.9); Basophils % 0.6 % (0-1.3); Hematocrit 38.9 % (36.0-45.0); Lymphocytes % 49.6 % (15.3-44.8); MPV 9.3 fL (7.6-11.3); RBC Red Blood Cell Count 4.41 M/uL (3.86-4.86)
[2020-06-11 12:32] LABS: ALT/SGPT 22 U/L (12-78); AST/SGOT 26 U/L (15-37); Albumin 3.4 g/dL (3.4-5.0); Alkaline Phosphatase 94 U/L (45-117); BUN Blood Urea Nitrogen 11 mg/dL (7-18); Bicarbonate 31 mmol/L (21-32); Bilirubin Direct < 0.1 mg/dL (0-0.2); Bilirubin Total 0.2 mg/dL (0.2-1.0); Glucose Level 65 mg/dL (74-106); Potassium 3.6 mmol/L (3.5-5.1); Protein, Total 7.1 g/dL (6.4-8.2); Sodium Level 142 mmol/L (136-145)
[2020-06-11 12:44] LABS: HCG, Quantitative < 1 mIU/mL (1-3)
[2020-06-11 13:25] LABS: Blood Morphology Comment NOT SEEN (NOT SEEN); Platelet Estimate ADEQ
--- NOTE | 2020-06-11 13:36 | EDPHYS ---
Physician Documentation [facility] Name: Anusha Gunn Age: 24 yrs Sex: Female : 1995 Arrival Date: 06/11/2020 Time: 10:26 Bed 19 Private MD: ED Physician Lorin Hill HPI: 06/11 10:59 This 24 yrs old Female presents to ER via Ambulatory with complaints of cp Vaginal Discharge. 10:59 The patient presents with vaginal discharge, that is brown discharge. Onset: The cp symptoms/episode began/occurred for past several months. Associated signs and symptoms: Pertinent positives: irregular menstrual cycle, Pertinent negatives: constipation, cramping, diarrhea, dysuria, fever. 10:59 The patient is sexually active, reports multiple partners, does not use protection cp during intercourse. 10:59 The patient's method of control includes nothing. cp 11:00 Patient reports sharing an intravenous needle 3 months ago with HIV positive person. 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 ROS: 11:05 Abdomen/GI: Negative for abdominal pain, nausea, vomiting, and diarrhea. cp 11:05 Constitutional: Negative for fever. cp 11:05 : Positive for vaginal discharge, Negative for urinary symptoms, vaginal bleeding. 11:05 Neuro: Negative for altered mental status, headache, weakness. 11:05 All other systems are negative. Exam: 11:14 Head/Face: Normocephalic, atraumatic. cp 11:14 Constitutional: The patient appears in no acute distress, alert, awake, comfortable, non-toxic, well developed, well nourished. 11:14 Eyes: Periorbital structures: appear normal, Conjunctiva: normal, no exudate, no injection, Lids and lashes: appear normal, bilaterally. 11:14 ENT: External ear(s): are unremarkable, Nose: is normal, Mouth: Lips: moist, Posterior pharynx: Airway: no evidence of obstruction, patent. 11:14 Chest/axilla: Inspection: normal. 11:14 Cardiovascular: Rate: normal. 11:14 Respiratory: the patient does not display signs of respiratory distress, Respirations: normal, no use of accessory muscles, no retractions, labored breathing, is not present. 11:14 Abdomen/GI: Inspection: abdomen appears normal, Palpation: abdomen is soft and non-tender, in all quadrants, rebound tenderness, is not appreciated, voluntary guarding, is not appreciated, involuntary guarding, is not appreciated. 11:14 Back: pain, is absent, ROM is normal. 11:44 : Pelvic Exam: External exam: is normal, Speculum exam: no bleeding is noted, no cp cervicitis, os that is closed, bimanual exam reveals no cervical motion tenderness, no uterine tenderness, no adnexa tenderness or masses bilaterally, discharge, clear, a female draw frame tender was present for the exam, Sexual behavior: the patient is sexually active, and reports a single partner, method of control is none. Vital Signs: 10:29 BP 108 / 67; Pulse 85; Resp 17; Temp 97.8; Pulse Ox 100% ; Weight 58.51 kg; Height 5 rb3 ft. 3 in. (160.02 cm); Pain 0/10; 11:27 BP 100 / 69; Pulse 81; Resp 16; Pulse Ox 100% ; rb3 12:25 BP 103 / 67; Pulse 85; Resp 16; Pulse Ox 99% ; rb3 13:22 BP 100 / 66; Pulse 81; Resp 17; Pulse Ox 100% ; rb3 10:29 Body Mass Index 22.85 (58.51 kg, 160.02 cm) rb3 MDM: 10:43 Patient medically screened. cp 13:33 Data reviewed: vital signs, nurses notes, lab test result(s), I have discussed the cp patient's presentation/case with the attending Emergency Department Physician; and as a result, I will discharge patient. 13:33 Counseling: I had a detailed discussion with the patient and/or guardian regarding: the cp historical points, exam findings, and any diagnostic results supporting the discharge/admit diagnosis, lab results, to return to the emergency department if symptoms worsen or persist or if there are any questions or concerns that arise at home. 06/11 10:50 Order name: Urine Microscopic Only; Complete Time: 12:20 cp 06/11 10:54 Order name: Urine Dipstick--Ancillary (enter results); Complete Time: 12:20 eb 06/11 10:54 Order name: Urine --Ancillary (enter results); Complete Time: 12:20 eb 06/11 11:06 Order name: CBC with Diff 06/11 11:06 Order name: Chem 7 06/11 11:06 Order name: LFT's 06/11 11:06 Order name: Hepatitis Panel 06/11 11:06 Order name: Beta hcg 06/11 11:06 Order name: GC (GONORR/CHLAMYDIA) Probe 06/11 11:06 Order name: Wet Prep; Complete Time: 13:04 06/11 13:05 Interpretation: Reviewed. 06/11 11:07 Order name: CBC with Automated Diff; Complete Time: 13:32 EDMD 06/11 12:21 Interpretation: LYM% 49.6; Reviewed. 06/11 11:07 Order name: Basic Metabolic Panel; Complete Time: 13:04 EDMD 06/11 13:05 Interpretation: Normal except: GLUC 65. 06/11 11:07 Order name: Liver (Hepatic) Function; Complete Time: 13:04 EDMS 06/11 13:06 Interpretation: Normal except: GLOB 3.7; A/G 0.9. 06/11 11:07 Order name: Hepatitis Panel,Acute EDMD 06/11 10:50 Order name: Urine Dipstick-Ancillary (obtain specimen); Complete Time: 10:54 06/11 10:50 Order name: Urine Test (obtain specimen); Complete Time: 10:53 06/11 11:06 Order name: Pelvic Exam Setup; Complete Time: 11:54 06/11 11:07 Order name: HCG, Quantitative; Complete Time: 13:04 EDMS 06/11 11:07 Order name: GC (Juan/Chl) Probe CX/URE EDMD 06/11 11:10 Order name: HIV (1 EDMD 06/11 13:25 Order name: Manual Differential; Complete Time: 13:32 EDMS Administered Medications: 13:25 Drug: Zithromax (azithromycin) 1 grams Route: PO; rb3 13:44 Follow up: Response: No adverse reaction rb3 13:25 Drug: Rocephin (cefTRIAXone) 250 mg Route: IM; Site: right gluteus; rb3 13:44 Follow up: Response: No adverse reaction rb3 13:32 Not Given (Provider changed ordered.): Rocephin - (cefTRIAXone) 1 grams IVPB once over rb3 30 mins; (mix in 50 mL NS) Disposition: 13:50 Chart complete. cp Disposition: 06/11/20 13:34 Discharged to Home. Impression: Encounter for screening for infections with a predominantly sexual mode of transmission, Encounter for screening for human immunodeficiency virus [HIV]. - Condition is Stable. - Discharge Instructions: Sexually Transmitted Disease, Health Maintenance, Female. - Medication Reconciliation Form, Thank You Letter, Antibiotic Education, Prescription Opioid Use form. - Follow up: Private Physician; When: 2 - 3 days; Reason: Recheck today's complaints. - Problem is new. - Symptoms have improved. Addendum: 06/15/2020 19:34 Co-signature as Attending Physician, Lorin Hill MD. m a2 Signatures: Dispatcher [employer] EDMS Patricio Dempsey PA PA cp Lorin Hill MD MD ma2 Jeannie Jackson RN RN rb3 Corrections: (The following items were deleted from the chart) 06/11 13:47 13:34 06/11/2020 13:34 Discharged to Home. Impression: Encounter for screening for rb3 infections with a predominantly sexual mode of transmission; Encounter for screening for human immunodeficiency virus [HIV]. Condition is Stable. Forms are Medication Reconciliation Form, Thank You Letter, Antibiotic Education, Prescription Opioid Use. Follow up: Private Physician; When: 2 - 3 days; Reason: Recheck today's complaints. Problem is new. Symptoms have improved. cp
[2020-06-11] MEDS ORDERED: CEFTRIAXONE 250 MG/VIAL ONE (13:37)
[2020-06-11] MEDS ORDERED: AZITHROMYCIN 250 MG TAB ONE (13:37)
--- NOTE | 2020-06-11 13:48 | ER ---
Nurse's Notes [facility] Name: Anusha Gunn Age: 24 yrs Sex: Female : 1995 Arrival Date: 06/11/2020 Time: 10:26 Bed 19 Private MD: Diagnosis: Encounter for screening for infections with a predominantly sexual mode of transmission;Encounter for screening for human immunodeficiency virus [HIV] Presentation: 06/11 10:29 Chief complaint: Patient states: Menstrual cycle is 19 days late. Pt. has taken rb3 tests at home but all were negative. Also reports that she may have been exposed to HIV by sharing a needle about three months ago. 10:29 Coronavirus screen: At this time, the client does not indicate any symptoms associated rb3 with coronavirus-19. Ebola Screen: Patient denies travel to an Ebola-affected area in the 21 days before illness onset. Initial Sepsis Screen: Does the patient meet any 2 criteria? No. Patient's initial sepsis screen is negative. Does the patient have a suspected source of infection? No. Patient's initial sepsis screen is negative. Risk Assessment: Do you want to hurt yourself or someone else? Patient reports no desire to harm self or others. Onset of symptoms is unknown. 10:29 Method Of Arrival: Ambulatory rb3 10:29 Acuity: MARTHA 3 rb3 Triage Assessment: 10:29 General: Appears in no apparent distress. Behavior is calm, cooperative, Denies fever. rb3 General: Expresses concern that she may have been exposed to HIV and Gonorrhea.. Pain: Denies pain. Neuro: Level of Consciousness is awake, alert, obeys commands, Oriented to person, place, time, situation. Cardiovascular: Capillary refill < 3 seconds. Respiratory: Airway is patent Respiratory effort is even, unlabored, Respiratory pattern is regular, symmetrical. GI: No signs and/or symptoms were reported involving the gastrointestinal system. : Reports discharge, White and brown discharge for the last couple months. Boyfriend tested positive for Gonorrhea. Derm: Skin is pink, warm \T\ dry. 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 Screenin:29 Abuse screen: Denies threats or abuse. Nutritional screening: No deficits noted. rb3 Tuberculosis screening: No symptoms or risk factors identified. Fall Risk None identified. Assessment: 10:29 General: See triage assessment. rb3 11:27 Reassessment: Patient appears in no apparent distress at this time. No changes from rb3 previously documented assessment. 12:25 Reassessment: Patient appears in no apparent distress at this time. Patient and/or rb3 family updated on plan of care and expected duration. Pain level reassessed. Patient is alert, oriented x 3, equal unlabored respirations, skin warm/dry/pink. 13:05 Reassessment: Pt. requested to speak with the provider. Provider notified. rb3 13:45 Reassessment: Patient appears in no apparent distress at this time. Patient and/or rb3 family updated on plan of care and expected duration. Pain level reassessed. Patient is alert, oriented x 3, equal unlabored respirations, skin warm/dry/pink. Vital Signs: 10:29 BP 108 / 67; Pulse 85; Resp 17; Temp 97.8; Pulse Ox 100% ; Weight 58.51 kg; Height 5 rb3 ft. 3 in. (160.02 cm); Pain 0/10; 11:27 BP 100 / 69; Pulse 81; Resp 16; Pulse Ox 100% ; rb3 12:25 BP 103 / 67; Pulse 85; Resp 16; Pulse Ox 99% ; rb3 13:22 BP 100 / 66; Pulse 81; Resp 17; Pulse Ox 100% ; rb3 10:29 Body Mass Index 22.85 (58.51 kg, 160.02 cm) rb3 ED Course: 10:26 Patient arrived in ED. am2 10:29 Arm band placed on right wrist. rb3 10:31 Jeannie Jackson, TALIA is Primary Nurse. rb3 10:41 Patricio Dempsey PA is PHCP. cp 10:41 Lorin Hill MD is Attending Physician. cp 10:54 Urine Microscopic Only Sent. 5 10:56 Urine collected: clean catch specimen, cloudy. 5 10:56 Patient has correct armband on for positive identification. Placed in gown. Bed in low mh5 position. Call light in reach. Warm blanket given. Pulse ox on. NIBP on. 10:59 Triage completed. rb3 13:46 No provider procedures requiring assistance completed. Patient did not have IV access rb3 during this emergency room visit. Administered Medications: 13:25 Drug: Zithromax (azithromycin) 1 grams Route: PO; rb3 13:44 Follow up: Response: No adverse reaction rb3 13:25 Drug: Rocephin (cefTRIAXone) 250 mg Route: IM; Site: right gluteus; rb3 13:44 Follow up: Response: No adverse reaction rb3 13:32 Not Given (Provider changed ordered.): Rocephin - (cefTRIAXone) 1 grams IVPB once over rb3 30 mins; (mix in 50 mL NS) Outcome: 13:34 Discharge ordered by . corry 13:46 Discharged to home ambulatory. rb3 13:46 Condition: stable 13:46 Discharge instructions given to patient, Instructed on discharge instructions, follow up and referral plans. Demonstrated understanding of instructions, follow-up care, Prescriptions given X none 13:47 Patient left the ED. rb3 Signatures: Patricio Dempsey PA PA cp Martinez, [facility] Peyton Hendricks am2 Jeannie Jackson, RN RN rb3
[2020-06-11 13:51] VITALS: TEMP 97.8
[2020-06-11 13:55] VITALS: BP 100/66; O2SAT 100
[2020-06-14 04:40] LABS: C.trachomatis RNA,TMA Not Detected (Not Detected)
[2020-06-14 20:01] LABS: HBsAG Nonreactive (Nonreactive)
== END 2020-06-11 13:47 | disposition home or self-care (01) ==
LOC: ER 10:25
DX: Z11.3 Encounter for screening for infections with a predominantly sexual mode of transmission (principal); Z11.4 Encounter for screening for human immunodeficiency virus [HIV]; F31.9 Bipolar disorder, unspecified
CPT/HCPCS: 85025; 80048; 36415; 81025; 80076; 87210; 84702; 87590; 87490; 80074; 96372; 99284; G0433; J0696; 81003; 81015

== ENCOUNTER 2021-06-24 20:19 | Emergency (ER) | payer OTHER ==
--- OUTSIDE RECORDS SUMMARY | 2021-06-24 20:23 | XMS REPORT | Continuity of Care Document ---
:1995 Author Organization [facility] t Address [facility] [place] [address] Care Team Providers Name Role Phone Amandeep Willoughby MD Attending Clinician 2, Lab Attending Clinician Unavailable Amandeep WILLOUGHBY Attending Clinician Unavailable Doctor Unassigned, Name Attending Clinician Unavailable Lauri Arroyo MD Attending Clinician Tony Brunson MD Attending Clinician LAURI ARROYO Attending Clinician Unavailable Payers Payer Name Policy Type Policy Number Effective Date Expiration Date S ource Problems Condition Condition Condition Status Onset Resolution Last Treating Co mments Source Name Details Category Date Date Treatment Clinician Date No known No known Disease Unive rs active active ity of problems problems [facility] Allergies, Adverse Reactions, Alerts Allergy Allergy Status Severity Reaction(s) Onset Inactive Treating Comm ents Source Name Type Date Date Clinician NO KNOWN Drug Active Univers ALLERGIE Class ity of S [facility] Social History Social Habit Start Date Stop Date Quantity Comments Source Sex Assigned At Universit y of [facility] Exposure to Not sure [facility] SARS-CoV-2 [facility] (event) [place] Tobacco use and 2020-02-01 2020-02-01 Never used Universit y of exposure 00:00:00 00:00:00 [facility] Alcohol intake 2020-02-01 2020-02-01 Ex-drinker [facility] 00:00:00 00:00:00 (finding) [facility] Smoking Status Start Date Stop Date Source Never smoker [facility] Unknown if ever smoked Universit y [facility] Medications Ordered Filled Start Stop Current Ordering Indication Dosage Frequency Signature Comments Components Source Medication Medication Date Date Medication? Clinician (SIG) Name Name Nitrofurant 2019-03 Yes [id number] 100mg Take 1 Univers oin&Nit. 1-13 capsule by ity o [place] (two) Medical 100 mg times Branch capsule daily. Nitrofurant 2019-03 Yes [id number] 100mg Take 1 Univers oin&Nit. 1-13 capsule by [place]y o [place] ([place] 00 (two) Medical 100 mg times Branch capsule daily. Nitrofurant 2019-03 Yes [id number] 100mg Take 1 Univers oin&Nit. 1-13 capsule by [place]y o [place] ([place]CR[place] 00 (two) Medical 100 mg times Branch capsule daily. azithromyci 2019-03 Yes [id number] 1000mg Take 2 Univers n 500 mg 1-12 tablets by ity o f tablet 00:00: mouth [place] 00 daily. Medical Branch azithromyci 2019- Yes [id number] 1000mg Take 2 Univers n 500 mg 1-12 tablets by ity o f tablet 00:00: mouth [place] 00 daily. Medical Branch azithromyci 2019-03 Yes [id number] 1000mg Take 2 Univers n 500 mg 1-12 tablets by ity o f tablet 00:00: mouth [place] 00 daily. Medical Branch azithromyci 2019-03 Yes [id number] 1000mg Take 2 Univers n 500 mg 1-12 tablets by ity o f tablet 00:00: mouth [place] 00 daily. [facility] aripiprazol 2019-03 Yes Take by Un shanel e (ABILIFY 1-10 mouth. ity of ORAL) 16:55: [address] aripiprazol 2019- Yes Take by Un shanel e (ABILIFY 1-10 mouth. ity of ORAL) 16:55: [address] aripiprazol 2019-03 Yes Take by Un shanel e (ABILIFY 1-10 mouth. ity of ORAL) 16:55: [address] aripiprazol 2019-03 Yes Take by Un shanel e (ABILIFY 1-10 mouth. ity of ORAL) 16:55: [address] aripiprazol 2019-03 Yes Take by Un shanel e (ABILIFY 1-10 mouth. ity of ORAL) 16:55: [address] aripiprazol 2019-03 Yes Take by Un shanel e (ABILIFY 1-10 mouth. ity of ORAL) 16:55: [address] azithromyci 2020- No 500mg 500 mg, U nivers n 10-17 Oral, ity of (ZITHROMAX) 00:15: 02:25 [place]CE, 1 [place] 500 00 :00 dose, [facility] rickey mg 10/17/19 at Branch 1915, BUR[place]
Re ason for Anti-Infec tive: Documented Infection< br>Documen valerie Infection Site: Respirator y
Durat ion of Therapy: 7 days naloxone 2019- No .4mg 0.4 mg, Unive rs (NARCAN) 10-17 Slow IV ity of injection 00:15: 23:10 Push, Sudheer 0.4 mg 00 :00 ONCE, 1 Medical dose, [facility] 10/17/19 at 1915, STAT NaCl 0.9% 2019- No 1000mL at 999 Uni vers (NS) bolus 10-16 mL/hr, ity of infusion 21:00: 22:18 1,000 mL, Ez as 1,000 mL 00 :00 IV Medical Infusion, [place] ONCE, 1 dose, [place] 10/17/19 at 1600, [place] No known No Univers medications [facility] No known No Univers medications [facility] Vital Signs Vital Name Observation Time Observation Value Comments Source Systolic blood 2020-02-01 16:51:00 101 mm[Hg] Univer sity of pressure [facility] Diastolic blood 2020-02-01 16:51:00 70 mm[Hg] Unive rsity of pressure [facility] Heart rate 2020-02-01 16:51:00 87 /min [facility] Body temperature 2020-02-01 16:51:00 36.72 Franca [facility] Respiratory rate 2020-02-01 16:51:00 18 /min [facility] Body height 2020-02-01 16:51:00 160 cm [facility] Body weight 2020-02-01 16:51:00 55.792 kg [facility] [place] [facility] BMI 2020-02-01 16:51:00 21.79 kg/m2 Universi ty of [facility] Branch Systolic blood 2020-02-01 16:51:00 101 mm[Hg] Univer sity of pressure [facility] Diastolic blood 2020-02-01 16:51:00 70 mm[Hg] Unive rsity of pressure [facility] Heart rate 2020-02-01 16:51:00 87 /min Universi ty of [facility] Body temperature 2020-02-01 16:51:00 36.72 Franca Univ ersity of [facility] Respiratory rate 2020-02-01 16:51:00 18 /min Univ ersity of [facility] Body height 2020-02-01 16:51:00 160 cm Universi ty of [facility] Body weight 2020-02-01 16:51:00 55.792 kg Universi ty of [facility] BMI 2020-02-01 16:51:00 21.79 kg/m2 Universi ty of [facility] Branch Systolic blood 2019-10-18 02:05:00 107 mm[Hg] Univer sity of pressure [facility] Diastolic blood 2019-10-18 02:05:00 70 mm[Hg] Unive rsity of pressure [facility] Heart rate 2019-10-18 02:05:00 95 /min Universi ty of [facility] Respiratory rate 2019-10-18 02:05:00 9 /min [facility] Oxygen saturation in 2019-10-18 02:05:00 100 /min University of Arterial blood by [facility] Pulse oximetry Branch Body temperature 2019-10-18 00:10:00 35.67 Franca Univ ersity of [facility] Body weight 2019-10-17 20:44:00 63.504 kg Universi ty of [facility] Systolic blood 2019-10-18 02:05:00 107 mm[Hg] Univer sity of pressure [facility] Diastolic blood 2019-10-18 02:05:00 70 mm[Hg] Unive rsity of pressure [facility] Heart rate 2019-10-18 02:05:00 95 /min Universi ty of [facility] Respiratory rate 2019-10-18 02:05:00 9 /min [facility] Oxygen saturation in 2019-10-18 02:05:00 100 /min [facility] Arterial blood by [facility] Pulse oximetry Branch Body temperature 2019-10-18 00:10:00 35.67 Franca [facility] Body weight 2019-10-17 20:44:00 63.504 kg [facility] Procedures Procedure Date / Time Performing Clinician Source Performed CONSENT/REFUSAL FOR 2020-02-01 16:26:11 Doctor Unassigned, No [facility] DIAGNOSIS AND TREATMENT Name [facility] ASSIGNMENT OF BENEFITS 2020-02-01 16:25:59 Doctor Unassigned, No [facility] Name [facility] POCT TEST 2020-02-01 00:00:00 Adum, Kellie [facility] POCT URINALYSIS W/O 2020-02-01 00:00:00 Adum, Kellie Bernstein [facility] SPECIFIC GRAVITY [facility] XR CHEST 1 VW 2019-10-17 22:12:24 Dina [facility] COVID-19 (ID NOW RAPID 2019-10-17 21:05:00 Dina Bascom [facility] TESTING) [facility] CREATINE KINASE 2019-10-17 20:58:00 Dina [facility] TEST, SERUM 2019-10-17 20:58:00 Dina [facility] TROPONIN I 2019-10-17 20:58:00 Dina [facility] HEPATIC FUNCTION PANEL 2019-10-17 20:58:00 Dina [facility] ([id number]) (ALB,T.PRO,BILI [facility] T,BU/BC,ALT,AST,ALK PHOS) BASIC METABOLIC PANEL 2019-10-17 20:58:00 Dina [facility] (NA, K, CL, CO2, Medical [place] GLUCOSE, BUN, CREATININE, CA) SALICYLATE 2019-10-17 20:58:00 Dina [facility] CBC WITH DIFF 2019-10-17 20:58:00 Dina [facility] PROTHROMBIN TIME / INR 2019-10-17 20:58:00 Dina [facility] ACTIVATED PARTIAL 2019-10-17 20:58:00 Ree Arroyo [facility] PRO-BNP 2019-10-17 20:58:00 Ree Arroyo [facility] ity [facility] EKG-12 LEAD 2019-10-17 20:54:33 Ree Arroyo [facility] Encounters Start End Encounter Admission Attending Care Care Encounter Source Date/Time Date/Time Type Type Clinicians Facility Department ID 2020-03-13 2020-03-13 Telephone Adum, [facility] [id number] 00:00:00 00:00:00 Kellie Amandeep Dexter [id number] [place] 4.2.7.2.686 Professio [phone] [address] 2020-03-13 2020-03-13 Telephone Adum, [facility] [id number] [facility] 00:00:00 00:00:00 Kellie L Dex[place] [id number] [place] [phone] Ne dic[address] 2020-02-04 2020-02-04 Case Adum, [facility] [id number] 00:00:00 00:00:00 Management Kellie L Dexter [id number] [place] 4.2.7.2.686 Professio [phone] [address] 2020-02-04 2020-02-04 Case Adum, [facility] [id number] [facility] 00:00:00 00:00:00 Management Kellie L Dexter [id number] [place] [phone] Ne dic[address] 2020-02-04 2020-02-04 Telephone Ad, [facility] [id number] [facility] 00:00:00 00:00:00 Kellie L Dexter [id number] [place] [phone] Ne dic[address] 2020-02-04 2020-02-04 Telephone Adum, [facility] [id number] 00:00:00 00:00:00 Kellie Mahajanton [id number] [place] 4.2.7.2.686 Professio [phone] [address] 2020-02-03 2020-02-03 Case Adum, [facility] [id number] [facility] 00:00:00 00:00:00 Management Kellie Mahajanton [id number] ity of [place] [phone] Ne dic[address] 2020-02-03 2020-02-03 Case Adum, [facility] [id number] 00:00:00 00:00:00 Management Kellie Bernstein Dex[place] [id number] [place] 4.2.7.2.686 Professio [phone] [address] 2020-02-01 2020-02-01 Dye Operator 2, Adc Lab [facility] [id number] Univers 11:43:58 11:58:58 Visit Adum, Kellie Rivera 350.1.13.10 ity [place] [phone] Ne dical [address] 2020-02-01 2020-02-01 Dye Operator 2, Adc Lab [facility] [id number] 11:43:58 11:58:58 Visit Dexter 350.1.13.10 [place] 4.2.7.2.686 Professio [phone] [address] 2020-02-01 2020-02-01 Outpatient R [facility] [id number] Univers 11:45:00 11:45:00 ity of [facility] 2020-02-01 2020-02-01 Initial Adum, [facility] [id number] Univers 10:30:19 11:39:38 Kellie Mahajanton 350.1.13.10 ity of Visit [place] [phone] Me dical [facility] 134 [facility] 2020-02-01 2020-02-01 Initial Adum, [facility] [id number] 10:30:19 11:39:38 Kellie Rivera 350.1.13.10 Visit [place] 4.2.7.2.686 Professio [phone] [address] 2020-02-01 2020-02-01 Outpatient R AD, [facility] [id number] Univers 10:30:00 10:30:00 KELLIE gaines [facility] 2020-02-01 2020-02-01 Orders Doctor [place] 1.2.840.114 [id number] Univers 00:00:00 00:00:00 Only Unassigned, SARAH 350.1.13.10 ity of [place] [facility] 4.2.7.2.686 Ez as [phone] [address] 2020-02-01 2020-02-01 Orders Doctor [place] 1.2.840.114 [id number] 00:00:00 00:00:00 Only Unassigned, SARAH 350.1.13.10 [place] [facility] 4.2.7.2.[phone] [facility] 2019-10-17 2019-10-17 Emergency Ree Arroyo [facility] [id number] Univers 15:45:22 21:48:00 Lauryn Brunson 350.1.13.10 ity of [place] [phone] [address] 2019-10-17 2019-10-17 Emergency Ree Arroyo [facility] 1.2.84 [id number] [id number] 15:45:22 21:48:00 Lauryn Brunson 350.1.13.10 [place] 4.2.7.2.686 [place] [phone] [facility] 2019-10-17 2019-10-17 Emergency X DINA [facility] ERT [id number] Univers 15:45:22 15:45:22 REE bria [facility] Results Test Description Test Time Test Comments Results Result Comments Source POCT URINALYSIS W/O SPECIFIC GRAVITY 2020-02-01 17:39:00 Test Item Value Reference Range Interpretation Comme nts POCT PH U (test code = 3254) 7 mg/dl 5-8 POCT U LEUK EST (test code = 3263) Trace Negative - Negative POCT U NIT (test code = 3262) Negative Negative - Negative POCT U PROT (test code = 3259) Trace Negative - Negative POCT U GLU (test code = 3256) Negative Negative - Negative POCT U KETONE (test code = 3258) Negative Negative - Negative POCT U BLD (test code = 3257) Negative Negative - Negative [facility] [id number] 17:15:00 Test Item Value Reference Range Interpretation Comments POCT PREG (test code = 1605) Negative On board controls acceptable with C Yes Line (test code = 3574) POCT PREG LOT # (test code = 3575) POCT PREG TEST DATE (test code = 3576) [facility] [place] [facility] 1 [id number] 22:38:16 Streaky left retrocardiac opacities may represent infection and/oraspiration. Correlate clinically.Preliminary Report Dictated by Resident: Marck Singh MD., have reviewed this study and agree with theabove report.XR CHEST 1 VW Comparison: None available History: chest pain Technique: Single AP view of the chest. Findings: Streaky left retrocardiac opacities may represent infection and/oraspiration. No pleural effusion, focal consolidation, or pneumothorax isidentified. The cardiomediastinal silhouette is normal in size. No acute osseous abnormality is present. [facility], Radiant Results Inft User - 10/17/2019 5:39 PM CDTXR CHEST 1 VWComparison: None availableHistory: chest painTechnique: Single AP view of the chest.Findings:Streaky left retrocardiac opacities may represent infection and/oraspiration. No pleural effusion, focal consolidation, or pneumothorax isidentified. The cardiomediastinal silhouette is normal in size. No acute osseous abnormality is present.IMPRESSIONStreaky left retrocardiac opacities may represent infection and/oraspiration. Correlate clin ically.Preliminary Report Dictated by Resident: Nora Goodamn, Marck Mina MD., have reviewed this study and agree with theabove report. [facility] [place] [facility] HospitalTroponin [id number] 22:07:00 Test Item Value Reference Range Interpretation Comments TROPONIN I (test <0.012 See_Comment [Automated code = 4288057843) message] The system which generated this result transmitted reference range : <=0.034 ng/mL. The reference range was not used to interpr et this result as normal/abnormal . INESSA (test code = Equal or Less than INESSA) 0.034 ng/ml---Normal ?Note: Cardiac troponin begins to rise 3-4 hours after the onset of ischemia. Repeat in 4-6 hours if the sample was drawn within 3-4 hours of the onset of the symptom and found normal. Between 0.035 and 0.120 ng/mL--- Borderline. Questionable myocardial injury or necrosis ? ?Note: Serial measurement may be necessary to confirm or exclude the diagnosis of myocardial injury or necrosis; Clinical correlation (symptoms, EKGs, imaging studies, and others) required; Repeat in 4-6 hours if clinically indicated. ? Equal or Higher than 0.121 ng/mL---Abnormal. Myocardial Injury or Necrosis Likely ? Biotin has been reported to cause a negative bias, interpret results relative to patient's use of biotin. ? Lab Interpretation Normal (test code = 22058-5) [facility] [place] [facility]MINAL [id number] 22:04:00 Test Item Value Reference Range Interpretation Comments NT-proBNP (test code 303 pg/mL See_Comment H [Autom ated = 8692414132) message] The system which generated this result transmitted reference range : <=125. The reference range was not used to interpret this result as normal/abnormal . INESSA (test code = INESSA) Biotin has been reported to cause a negative bias, interpret results relative to patient's use of biotin. Lab Interpretation Abnormal (test code = 75082-1) [facility] [place] [facility] HospitalACETAMINOPHEN2020-07-26 21:56:00 Test Item Value Reference Range Interpretation Comments ACETAMINOP (test code = <10.0 10-30 L 7738943075) INESSA (test code = INESSA) Toxic: Greater than 200 ug/mL @ 4 hour post ingestion or greater than 50 ug/mL @ 12 hour post ingestion Lab Interpretation (test Abnormal code = 66035-7) [facility] [place] [facility] HospitalSALICYLATE2020-07-26 21:56:00 Test Item Value Reference Range Interpretation Comments SALICYLATE (test code <10 mg/L = 3428746878) INESSA (test code = INESSA) Therapeutic Range: ? Analgesic and Antipyretic Use ? 20-100 mg/L ? ? Anti-Inflammatory Use ? 100-250 mg/L Toxic Range: ? Greater than 300 mg/L [facility] [place] [facility] (NA, K, CL, CO2, GLUCOSE, BUN, CREATININE, CA)2019-10-17 21:55:00 Test Item Value Reference Range Interpretation Comments NA (test code = 138 mmol/L 135-145 2729839384) K (test code = 4.1 mmol/L 3.5-5 8944022252) CL (test code = 102 mmol/L 98-108 5980627897) CO2 TOTAL (test code = 26 mmol/L 23-31 0127977802) AGAP (test code = 2-16 6885549513) BUN (test code = 7 mg/dL 7-23 9915450295) GLUCOSE (test code = 160 mg/dL 70-110 H 5459218831) CREATININE (test code = 0.90 mg/dL 0.5-1.04 4748932917) CALCIUM (test code = 9.5 mg/dL 8.6-10.6 6168607004) eGFR Calculation mL/min/1.73m2 (Non-) (test code = 9962264801) eGFR Calculation mL/min/1.73m2 () (test code = 5172338358) INESSA (test code = INESSA) Association of Glomerular Filtration Rate (GFR) and Staging of Kidney Disease* + --+ --+ ------+| GFR (mL/min/1.73 m2) ?| With Kidney Damage ?| ?Without Kidney Damage+ --------+ --------+ +| ?>90 ?| ?Stage one ?| ? Normal ?+ ---+ ---+ -------+| ?60-89 ?| ?Stage two ?| ? Decreased GFR ? + --+ --+ ------+| ?30-59 ?| ?Stage three ?| ? Stage three ? + --+ --+ ------+| ?15-29 ?| ?Stage four ? | ? Stage four ?+ ---+ ---+ -------+| ?<15 (or dialysis) ? ?| ?Stage five ? | ? Stage five ?+ ---+ ---+ -------+ *Each stage assumes the associated GFR level has been in effect for at least three months. ?Stages 1 to 5, with or without kidney disease, indicate chronic kidney disease. Notes: Determination of stages one and two (with eGFR >59mL/min/1.73 m2) requires estimation of kidney damage for at least three months as defined by structural or functional abnormalities of the kidney, manifested by either:Pathological abnormalities or Markers of kidney damage (including abnormalities in the composition of the blood or urine or abnormalities in imaging tests). Lab Interpretation Abnormal (test code = 39028-7) [facility] [place] [facility] Hospital[facility] Function Panel (ALB, T.PRO, BILI T, BU/BC, ALT, AST, ALK PHOS)2019-10-17 21:55:00 Test Item Value Reference Range Interpretation Comments TOTAL BILI (test code = 8752851553) 0.4 mg/dL 0.1-1.1 BILI UNCON (test code = 2914770122) 0.6 mg/dL 0.1-1.1 BILI CONJ (test code = 2597887222) 0.0 mg/dL 0-0.3 T PROTEIN (test code = 6397328029) 7.5 g/dL 6.3-8.2 ALBUMIN (test code = 9025023737) 4.3 g/dL 3.5-5 ALK PHOS (test code = 2180402467) 69 U/L 34-122 ALTv (test code = 1742-6) 21 U/L 5-35 AST(SGOT) (test code = 3756639761) 55 U/L 13-40 H Lab Interpretation (test code = Abnormal 79493-0) [facility] [place] [facility] HospitalCREATINE [id number] 21:55:00 Test Item Value Reference Range Interpretation Comments CK (test code = 0593179710) 65 U/L 33-194 Lab Interpretation (test code = Normal 61484-1) [facility] [place] [facility] HospitalPregnancy Test, [id number] 21:51:00 Test Item Value Reference Range Interpretation Comments PREG SERUM (test code Negative = 8272232069) INESSA (test code = INESSA) Less than 10 IU/L. ?If low titer or ectopic is suspected, resubmit specimen in 48-72 hours. [facility] [place] [facility] HospitalProthrombin Time (PT) / [id number] 21:43:00 Test Item Value Reference Range Interpretation Comments PROTIME PATIENT (test See_Comment [Auto mated message] code = 5964-2) The system wh ich generated this result transmitted ref erence range: 12.0 - 1 4.7 Seconds. The re ference range was not u sed to interpret this result as normal/abnor mal. INR (test code = 6301-6) Nor mal INR <1.1; Warfarin Therap eutic range 2.0 to 3. 0 or 2.5 to 3.5, dep ending upon the indica tions. Lab Interpretation (test Normal code = 24545-6) [facility] [place] [facility] HospitalaPTT2020-07-26 21:37:00 Test Item Value Reference Range Interpretation Comments APTT Patient (test See_Comment [Automat ed code = 3173-2) message] The system which generated this result transmitted reference range : 23 - 38 Seconds . The reference range was not used to interpr et this result as normal/abnormal . INESSA (test code = INESSA) The [facility] patient population mean normal value for aPTT is 30 seconds. Lab Interpretation Normal (test code = 55963-0) [facility] [place] [facility] HospitalCOVID-19 (ID NOW RAPID TESTING)2019-10-17 21:33:00 Test Item Value Reference Range Interpretation Comments SARS-CoV-2 Rapid ID NOW Not Detected Not Detected (test code = 88320-3) INESSA (test code = INESSA) ID NOW COVID-19 Assay is an isothermal nucleic acid amplification test intended for the qualitative detection of nucleic acid from SARS-CoV-2 viral RNA in nasopharyngeal (FLIGHT SIMULATOR TEACHER) specimens. It is used under Emergency Use Authorization (EUA) by FDA. The limit of detection (LOD) of the assay is 125 Genome Equivalents/mL. A positive result is indicative of the presence of SARS-CoV-2 RNA. ?Clinical correlation with patient history and other diagnostic information is necessary to determine patient infection status. A negative (Not Detected) result does not preclude SARS-CoV-2 infection. In patients with clinical symptoms and other tests that are consistent with SARS-CoV-2 infection, negative results should be treated as presumptive negative and a new specimen should be tested with alternative PCR molecular test. Invalid: Please collect a new specimen for repeat patient testing if clinically indicated. Lab Interpretation Normal (test code = 13458-7) [facility] with [id number] 21:19:00 Test Item Value Reference Range Interpretation Comments WBC (test code = See_Comment [Automated 3444-2) message] The sy stem which generated this result transmitted reference range : 4.30 - 11.10 10*3/?L. The reference range was not used to interpret this result as normal/abnormal . RBC (test code = See_Comment [Automated 029-8) message] The sy stem which generated this result transmitted reference range : 3.93 - 5.25 10*6/?L. The reference range was not used to interpret this result as normal/abnormal . HGB (test code = 14.4 g/dL 11.6-15 718-7) HCT (test code = 44.5 % 35.7-45.2 4544-3) MCV (test code = 90.1 fL 80.6-95.5 787-2) MCH (test code = 29.1 pg 25.9-32.8 785-6) MCHC (test code = 32.4 g/dL 31.6-35.1 786-4) RDW-SD (test code = 42.4 fL 39-49.9 53757-9) RDW-CV (test code = 12.7 % 12-15.5 788-0) PLT (test code = See_Comment [Automated 377-3) message] The sy stem which generated this result transmitted reference range : 166 - 358 10*3/ ?L. The reference r nora was not used to interpret this result as normal/abnormal . MPV (test code = 10.9 fL 9.5-12.9 69659-5) NRBC/100 WBC (test See_Comment [Automat ed code = [id number]) message] The system which generated this result transmitted reference range : 0.0 - 10.0 /100 WBCs. The refer ence range was not u sed to interpret th is result as normal/abnormal . NRBC x10^3 (test code <0.01 See_Comment [Auto mated = [id number]) message] The s ystem which generated this result transmitted reference range : 10*3/?L. The reference range was not used to interpret this result as normal/abnormal . GRAN MAT (NEUT) % 38.0 % (test code = 770-8) IMM GRAN % (test code 0.50 % = 0082347040) LYMPH % (test code = 51.1 % 736-9) MONO % (test code = 6.8 % 5905-5) EOS % (test code = 2.8 % 713-8) BASO % (test code = 0.8 % 706-2) GRAN MAT x10^3(ANC) 2.98 10*3/uL 1.88-7.09 (test code = 2543602683) IMM GRAN x10^3 (test 0.04 10*3/uL 0-0.06 code = 5794118380) LYMPH x10^3 (test code 4.01 10*3/uL 1.32-3.29 H = 731-0) MONO x10^3 (test code 0.53 10*3/uL 0.33-0.92 = 742-7) EOS x10^3 (test code = 0.22 10*3/uL 0.03-0.39 711-2) BASO x10^3 (test code 0.06 10*3/uL 0.01-0.07 = 704-7) Lab Interpretation Abnormal (test code = 16144-8) [facility]"
[2021-06-24] MEDS ORDERED: NA CHLORIDE 0.9% 1,000 ML ONE (21:13)
[2021-06-24] MEDS ORDERED: LORazepam 2 MG/ML VIAL ONE (21:13)
[2021-06-24 21:46] LABS: Urine Blood Trace-intact (Negative); Urine Glucose Negative (Negative); Urine Protein 1+ (Negative); Urine pH 5.5 (5.0-7.0)
[2021-06-24 22:02] LABS: Absolute Lymphocytes (CBC) 2.1 K/uL (0.7-4.9); Hematocrit 42.4 % (36.0-45.0); Lymphocytes % 13.2 % (15.3-44.8); RBC Red Blood Cell Count 4.88 M/uL (3.86-4.86)
[2021-06-24 22:13] LABS: Protime INR 1.05
[2021-06-24 22:20] LABS: Barbiturates NEGATIVE (NEGATIVE); Benzodiazepines NEGATIVE (NEGATIVE); Cocaine NEGATIVE (NEGATIVE); METHAMPHETAM POSITIVE (NEGATIVE); Methadone NEGATIVE (NEGATIVE); Opiates NEGATIVE (NEGATIVE); Phencyclidine NEGATIVE (NEGATIVE); THC Cannibis NEGATIVE (NEGATIVE)
[2021-06-24] MEDS ORDERED: ONDANSETRON 4 MG (ODT) TAB ONE (22:22)
[2021-06-24 22:31] LABS: ALT/SGPT 15 U/L (12-78); AST/SGOT 17 U/L (15-37); Albumin 3.5 g/dL (3.4-5.0); Alkaline Phosphatase 62 U/L (45-117); BUN Blood Urea Nitrogen 9 mg/dL (7-18); Bicarbonate 25 mmol/L (21-32); Bilirubin Direct 0.1 mg/dL (0-0.2); Bilirubin Total 0.3 mg/dL (0.2-1.0); Glucose Level 90 mg/dL (74-106); Potassium 3.2 mmol/L (3.5-5.1); Protein, Total 7.5 g/dL (6.4-8.2); Sodium Level 138 mmol/L (136-145)
[2021-06-25 00:10] LABS: Creatine Phosphokinase 194 U/L (26-192)
--- NOTE | 2021-06-25 01:26 | RAD REPORT ---
EXAM DESCRIPTION: CT - CTHCSPWOC - 06/24/2021 11:03 pm CLINICAL HISTORY: Trauma, head and neck injury. seizure, fall COMPARISON: Head C Spine Mpr Wo Con dated 06/28/2019 TECHNIQUE: Axial 5 mm thick images of the head were obtained. Axial 2 mm thick images of the cervical spine were obtained with sagittal and coronal reconstruction images generated and reviewed. All CT scans are performed using dose optimization technique as appropriate and may include automated exposure control or mA/KV adjustment according to patient size. FINDINGS: CT HEAD WITHOUT CONTRAST: Motion degradation is present. No acute hemorrhage, hydrocephalus or extra-axial collection is ident ified.No areas of brain edema or midline shift. The paranasal sinuses and mastoids are essentially clear.The calvarium is intact. CT CERVICAL SPINE WITHOUT CONTRAST: No fracture or subluxation.No prevertebral soft tissues swelling is identified. IMPRESSION: No acute intracranial or cervical spine findings.
--- NOTE | 2021-06-25 04:26 | EDPHYS ---
Physician Documentation [facility] Name: Anusha Gunn Age: 25 yrs Sex: Female : 1995 Arrival Date: 06/24/2021 Time: 20:21 Bed 18 Private MD: ED Physician Saurabh Rivas HPI: 06/24 20:31 This 25 yrs old Female presents to ER via EMS with complaints of Probable Seizure. mh7 20:31 The patient presents with a history of multiple seizures, a total of 3. Character of mh7 seizure(s): Loss of consciousness: it is not known if the patient experienced loss of consciousness, Motor activity: the motor activity is unknown, Incontinence: none, Apnea: the patient did not experience apnea, Circulation: the patient did not experience evidence of pulse disturbance, Eye movements: are unknown. Seizure onset: today. Context: the seizure(s) was witnessed, by family, father, mother, occurred at home, occurred while the patient was standing, Contributing factors: unknown, the patient is post-ictal. Seizure Hx: Original onset: longstanding. Associated injury: Head/face: forehead, contusion. Current symptoms: post ictal. 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 - Social history:: Unable to obtain, Unable to obtain, Smoking status: Pt won't speak to me, so, unable to obtain. . ROS: 20:31 Unable to obtain ROS due to postictal. mh7 Exam: 20:31 Eyes: Pupils equal round and reactive to light, extra-ocular motions intact. Lids and mh7 lashes normal. Conjunctiva and sclera are non-icteric and not injected. Cornea within normal limits. Periorbital areas with no swelling, redness, or edema. Neck: Trachea midline, no thyromegaly or masses palpated, and no cervical lymphadenopathy. Supple, full range of motion without nuchal rigidity, or vertebral point tenderness. No Meningismus. Chest/axilla: Normal chest wall appearance and motion. Nontender with no deformity. No lesions are appreciated. Cardiovascular: Regular rate and rhythm with a normal S1 and S2. No gallops, murmurs, or rubs. Normal PMI, no JVD. No pulse deficits. Respiratory: Lungs have equal breath sounds bilaterally, clear to auscultation and percussion. No rales, rhonchi or wheezes noted. No increased work of breathing, no retractions or nasal flaring. Abdomen/GI: Soft, non-tender, with normal bowel sounds. No distension or tympany. No guarding or rebound. No evidence of tenderness throughout. Back: No spinal tenderness. No costovertebral tenderness. Full range of motion. Skin: Warm, dry with normal turgor. Normal color with no rashes, no lesions, and no evidence of cellulitis. MS/ Extremity: Pulses equal, no cyanosis. Neurovascular intact. Full, normal range of motion. 20:31 Constitutional: The patient appears in no acute distress, awake, Appears postictal 20:31 Head/face: Noted is contusion, that is superficial, of the forehead. 20:31 Neuro: Orientation: unable to test, the patient is post-ictal, Mentation: unable to test, the patient is post-ictal, Memory: unable to test, the patient is post-ictal, Cranial nerves: unable to test, the patient is post-ictal, Cerebellar function: unable to test, the patient is post-ictal, Motor: moves all fours, Sensation: no obvious gross deficits, Gait: not tested. seizure activity, is not currently displayed, but the patient is post-ictal, Abnormal movements: there are no abnormal movements. Vital Signs: 20:22 Temp 98.3(A); al4 20:29 BP 106 / 65; Pulse 89; Resp 16; Temp 98.3; Pulse Ox 100% on R/A; Pain 0/10; joselin 22:33 BP 97 / 67; Pulse 110; Resp 16; Pulse Ox 100% on R/A; joselin 23:50 BP 102 / 67; Pulse 107; Resp 18; Pulse Ox 97% on R/A; joselin 04 00:15 BP 110 / 63; Pulse 105; Resp 16; Temp 98.6; Pulse Ox 95% on R/A; joselin 01:38 BP 118 / 66; Pulse 102; Resp 16; Pulse Ox 99% on R/A; joselin 03:55 BP 101 / 68; Pulse 102; Resp 16; Pulse Ox 100% on R/A; Pain 0/10; joselin [place] Coma Score: 06/24 20:29 Eye Response: spontaneous(4). Verbal Response: none(1). Motor Response: obeys joselin commands(6). Total: 11. 20:37 Eye Response: spontaneous(4). Verbal Response: oriented(5). Motor Response: obeys joselin commands(6). Total: 15. MDM: 06/25 04:22 Differential diagnosis: drug overdose, seizure. Differential diagnosis: Substance mh7 abuse. Data reviewed: vital signs. Data reviewed: nurses notes, EMS record, old medical records, lab test result(s), CBC, drug level(s), acetaminophen, alcohol, salicylate, electrolytes, urinalysis, urine drug screen, UPT: negative radiologic studies, CT scan. Data interpreted: Pulse oximetry: on room air is 100 %. Interpretation: normal. Counseling: I had a detailed discussion with the patient and/or guardian regarding: the historical points, exam findings, and any diagnostic results supporting the discharge/admit diagnosis, lab results, radiology results, the need for outpatient follow up, to return to the emergency department if symptoms worsen or persist or if there are any questions or concerns that arise at home. Response to treatment: the patient's symptoms have resolved after treatment, the patient's blood pressure is in an acceptable range, mental status has returned to baseline, the patient no longer shows bradycardia, the patient is not short of breath, the patient is not tachycardic, the patient's pain is gone, the patient's temperature has normalized, the patient is now symptom free, patient is well hydrated. 04:25 Patient medically screened. [facility] 06/24 20:26 Order name: Acetaminophen; Complete Time: 00:43 [facility] 06/24 20:26 Order name: Basic Metabolic Panel; Complete Time: 00:43 [facility] 06/24 20:26 Order name: CBC with Diff; Complete Time: 22:16 [facility] 06/24 20:26 Order name: ETOH Level; Complete Time: 22:33 [facility] 06/24 20:26 Order name: Hepatic Function; Complete Time: 00:43 [facility] 06/24 20:26 Order name: PT-INR; Complete Time: 22:16 [facility] 06/24 20:26 Order name: Ptt, Activated; Complete Time: 22:16 7 06/24 20:26 Order name: Salicylate; Complete Time: 22:33 7 06/24 20:26 Order name: Urine Drug Screen; Complete Time: 22:33 7 06/24 20:26 Order name: Test, Serum; Complete Time: 22:33 7 06/24 21:47 Order name: Urine Dipstick-Ancillary; Complete Time: 22:16 MS 06/24 21:59 Order name: Urine --Ancillary (enter results); Complete Time: 22:16 ds4 06/24 23:58 Order name: Creatine Phosphokinase; Complete Time: 00:43 EDMS 06/24 20:26 Order name: EKG; Complete Time: 20:28 [facility] 06/24 20:26 Order name: EKG - Nurse/Tech; Complete Time: 22:09 [facility] 06/24 20:26 Order name: IV Saline Lock; Complete Time: 21:30 [facility] 06/24 20:26 Order name: Labs collected and sent; Complete Time: 21:30 [facility] 06/24 20:26 Order name: Suicide Screening ([place]); Complete Time: 21:30 [facility] 06/24 20:26 Order name: Urine Dipstick-Ancillary (obtain specimen); Complete Time: 22:09 [facility] 06/24 20:26 Order name: CT Head C Spine; Complete Time: 01:43 7 Administered Medications: 06/24 21:10 Drug: NS 0.9% 1000 ml Route: IV; Rate: 1000 ml; Site: right antecubital; joselin 21:10 Drug: Ativan (LORazepam) 2 mg Route: IVP; Site: right antecubital; joselin 22:09 Follow up: Response: No adverse reaction joselin Disposition Summary: 06/25/21 04:25 Discharge Ordered Location: Home [facility] Problem: an acute exacerbation [facility] Symptoms: have improved [facility] Condition: Stable 7 Diagnosis - Other seizures mh7 - Methamphetamine Abuse 7 Followup: 7 - With: Private Physician - When: 1 - 2 days - Reason: Worsening of condition, Recheck today's complaints, Continuance of care, Re-evaluation by your physician Followup: [facility] - With: Anish Varma MD - When: 1 - 2 days - Reason: Worsening of condition, Recheck today's complaints Discharge Instructions: - Discharge Summary Sheet 7 - Methamphetamines Use Disorder 7 - Seizure, Adult, [id number] [facility] Forms: - Medication Reconciliation Form [facility] - Thank You Letter 7 - Antibiotic Education 7 - Prescription Opioid Use [facility] Signatures: Dispatcher [employer] Saurabh Mohamud MD MD [facility] [place] Arguello RN RN joselin Corrections: (The following items were deleted from the chart) 23:58 22:34 CREATINE PHOSPHOKINASE+C.LAB.BRZ ordered. EDMS EDMS
--- NOTE | 2021-06-25 04:26 | ER ---
Nurse's Notes [facility] Name: Anusha Gunn Age: 25 yrs Sex: Female : 1995 Arrival Date: 06/24/2021 Time: 20:21 Bed 18 Private MD: Diagnosis: Other seizures;Methamphetamine Abuse Presentation: 06/24 20:28 Chief complaint: EMS states: "Seizures". Ebola Screen: Unable to complete the Ebola joselin screening because: The patient does not understand the questions being asked. Initial Sepsis Screen: Does the patient meet any 2 criteria? No. Patient's initial sepsis screen is negative. Does the patient have a suspected source of infection? No. Patient's initial sepsis screen is negative. Risk Assessment: Do you want to hurt yourself or someone else? Unable to obtain. Onset of symptoms was June 24, 2021. 20:28 Method Of Arrival: EMS joselin 20:28 Acuity: MARTHA 3 joselin 20:43 Coronavirus screen: Unable to obtain. joselin Triage Assessment: 20:29 General: Appears in no apparent distress. Behavior is quiet. Pain: Unable to use pain joselin scale. Does not appear to understand pain scale. Neuro: Level of Consciousness is awake, alert, obeys commands, Not speaking with staff, but does follow directions, however, briefly. . RN EMERGENCY: 20:29 unable to obtain joselin Historical: - Home Meds: 20:29 Abilify Oral [Active]; joselin 22:38 levetiracetam oral [Active]; escitalopram oxalate oral [Active]; joselin - PMHx: 20:29 Bipolar disorder; Seizures; joselin - Immunization history:: Unable to obtain. - Social history:: Unable to obtain, Unable to obtain, Smoking status: Pt won't speak to me, so, unable to obtain. . Screenin:34 Abuse screen: Unable to obtain. Nutritional screening: No deficits noted. Tuberculosis joselin screening: Unable to obtain. Fall Risk Fall in past 12 months (25 points). Assessment: 20:34 Reassessment: No changes from previously documented assessment. Per EMS, the pt lives joselin with her parents and "showed up today" having been gone for several, and had 3 sz, per her parents. EMS did not witness these, but pt has hx of the same. Per EMS she "stopped Xanax 2 years ago and started having seizures". 20:38 Reassessment: Apparently, she is speaking to some staff. GCS values changed. The pt is joselin non-verbal with , and Co-worker, but speaks with the radiologist. 20:45 Reassessment: Apparently, the pt agreed to go to CT, but the pt wouldn't cooperate. joselin They brought her back to the room. 20:47 Reassessment: I've asked her if she agrees to having an IV, and although she wouldn't joselin speak to me, she nodded her head. Another nurse will be asked to help her hold her arm still, during placement. 21:00 General: Behavior is agitated, uncooperative, Helped assist primary nurse with IV tw5 access, soft restraints and obtaining straight cath urine sample. . 22:07 Reassessment: They were unable to do the CT, but having the pt with Ativan on board, joselin might prove "doable". The pt is in 2 point soft restraint, per MD's order and she is visible from the nurse's station. The side rails are padded, per sz precautions. 22:19 Reassessment: CT came and the pt is still refusing to lay on her back. MD informed that joselin they don't have a backboard, but a slider. Charge will be informed, when she comes out of intubation of another pt. 22:34 Reassessment: I spoke with the charge and I am to acquire the "slider board" from CT joselin and place pt in C collar, so she can cooperate for the CT. 23:10 Reassessment: The pt was taken to CT with a co-worker and we placed her in a C collar joselin and put her on the slide board. The pc maintenance technician helped, as well, and we were able to have the CT run. I brought her back to the room. She lay on her side, with the C collar still in place and the soft wrist restraints were removed, as she no longer was pulling and picking at things. I placed her on the bs monitor. She is sleeping with clear even breaths. 23:50 Reassessment: The pt is sleeping with clear, even breaths. joselin 06/25 00:27 Reassessment: The pt's father called, Jeovanny Oates\\ [phone], to "see how she was doing". joselin He reports that the pt has a "little problem with Xanax", "The doctors that she sees will just give 'em to her." The pt's father is extremely talkative. 01:59 Reassessment: The pt is much more coherent, now. I told her that her father called and joselin she asked what he said, so I told her. She is resting and in NAD. Awaiting results. 04:46 Reassessment: I called the pt's father, per her request, as she is being dc'd home. The joselin pt ambulated to the bathroom, without assist, and voided, without difficulty. 05:09 Reassessment: The pt's father is coming from [place], so the pt was placed in the joselin waiting area to wait for him to arrive, with her dc paperwork, personal belongings and water. Vital Signs: 06/24 20:22 Temp 98.3(A); al4 20:29 BP 106 / 65; Pulse 89; Resp 16; Temp 98.3; Pulse Ox 100% on R/A; Pain 0/10; joselin 22:33 BP 97 / 67; Pulse 110; Resp 16; Pulse Ox 100% on R/A; joselin 23:50 BP 102 / 67; Pulse 107; Resp 18; Pulse Ox 97% on R/A; joselin 04/04 00:15 BP 110 / 63; Pulse 105; Resp 16; Temp 98.6; Pulse Ox 95% on R/A; joselin 01:38 BP 118 / 66; Pulse 102; Resp 16; Pulse Ox 99% on R/A; joselin 03:55 BP 101 / 68; Pulse 102; Resp 16; Pulse Ox 100% on R/A; Pain 0/10; joselin [place] Coma Score: 06/24 20:29 Eye Response: spontaneous(4). Verbal Response: none(1). Motor Response: obeys joselin commands(6). Total: 11. 20:37 Eye Response: spontaneous(4). Verbal Response: oriented(5). Motor Response: obeys joselin commands(6). Total: 15. ED Course: 20:21 Patient arrived in ED. joselin 20:24 Saurabh Rivas MD is Attending Physician. [facility] 20:27 [place] Arguello, RN is Primary Nurse. joselin 20:29 Triage completed. joselni 20:29 Arm band placed on. joselin 20:39 No provider procedures requiring assistance completed. joselin 20:45 Patient has correct armband on for positive identification. Bed in low position. Side joselin rails up X2. 20:45 Seizure precautions initiated. joselin 21:30 Acetaminophen Sent. joselin 21:30 Basic Metabolic Panel Sent. joselin 21:30 CBC with Diff Sent. joselin 21:30 ETOH Level Sent. joselin 21:31 Hepatic Function Sent. joselin 21:31 PT-INR Sent. joselin 21:31 Ptt, Activated Sent. joselin 21:31 Salicylate Sent. joselin 21:31 Urine Drug Screen Sent. joselin 22:09 Test, Serum Sent. joselin 22:09 Urine --Ancillary (enter results) Sent. joselin 22:10 Acetaminophen Sent. joselin 22:10 Basic Metabolic Panel Sent. joselin 22:10 ETOH Level Sent. joselin 22:10 Hepatic Function Sent. joselin 22:10 PT-INR Sent. joselin 22:10 Ptt, Activated Sent. joselin 22:10 Salicylate Sent. joselin 22:10 Urine Drug Screen Sent. joselin 23:04 CT Head C Spine In Process Unspecified. EDMS 06/25 04:24 Anish Varma MD is Referral Physician. 7 05:11 intact, bleeding controlled, No redness/swelling at site. Pressure dressing applied. joselin Administered Medications: 06/24 21:10 Drug: NS 0.9% 1000 ml Route: IV; Rate: 1000 ml; Site: right antecubital; joselin 21:10 Drug: Ativan (LORazepam) 2 mg Route: IVP; Site: right antecubital; joselin 22:09 Follow up: Response: No adverse reaction joselin Outcome: 20:43 Condition: stable joselin 06/25 04:25 Discharge ordered by . mh7 05:10 Discharged to home ambulatory, with family, awaiting her father to pick her up joselin 05:10 Discharge instructions given to patient, Instructed on discharge instructions, follow up and referral plans. Demonstrated understanding of 05:11 Patient left the ED. joselin Signatures: Dispatcher [employer] EDAZ Saurabh Rivas MD MD mh7 [place] tw5 Eliazar Jc al4 [place] Arguello, RN RN joselin Corrections: (The following items were deleted from the chart) 06/24 23:58 23:51 CREATINE PHOSPHOKINASE+CSON drawn and sent. joselin [place]
[2021-06-25 05:20] VITALS: TEMP 98.6
[2021-06-25 05:22] VITALS: BP 101/68; O2SAT 100
--- NOTE | 2021-06-25 11:13 | EKG ---
Test Date: 2021-06-24 Test Time: 21:54:57 Ballistic Technician: MEASUREMENT RESULTS: Intervals: Rate: 112 AL: 128 QRSD: 82 QT: 282 QTc: 384 [place]: P: 72 AL: 128 QRS: 69 T: 66 INTERPRETIVE STATEMENTS: Sinus tachycardia Possible Left atrial enlargement Nonspecific T wave abnormality Abnormal ECG No previous ECG available for comparison Electronically Signed On 06-25-21 11:12:09 CDT by Jeff Brenner
== END 2021-06-25 05:11 | disposition home or self-care (01) ==
LOC: ER 20:19
DX: F15.10 Other stimulant abuse, uncomplicated (principal); F31.9 Bipolar disorder, unspecified
CPT/HCPCS: 93005; 85025; 80048; 36415; 80320; 82550; 80329 ×2; 84703; 81025; 85610; 80076; 85730; 81003; 80307; 70450; 72125; 96374; 99284; J7030

== ENCOUNTER 2024-10-27 14:26 | Emergency (ER) | payer OTHER, SELFPAY ==
--- OUTSIDE RECORDS SUMMARY | 2024-10-27 14:30 | XMS REPORT | Continuity of Care Document ---
Author Name Unknown Address [address] [facility] [address] [place] [address] [facility] Address [address] [facility]. [address] [place] [address] Care Team Providers Care Manager Environmental Health Name Role Phone MARK AC - Attending Clinician Unavailab Kellie Friedman MD Attending Clinician 2, [facility] Attending Clinician Unavailable KELLIE WILLOUGHBY Attending Clinician Unavailable Doctor Unassigned, [place] Attending Clinician U jaja Arroyo MD, Ree Alonzo Attending Clinician [phone] Lauryn Brunson MD Attending Clinician [phone] REE ARROYO Attending Clinician Unavailabl e MARK AC - Admitting Clinician Unavailab le Payers Payer Name Policy Type Policy Number Effective Date Expirati on Date Source [id number] Problems Condition Name Condition Details Condition Category Status Onset Date Resolution Date Last Treatment Date Treating Clinician Comments Source No known active problems No known active problems Disease [facility] Allergies, Adverse Reactions, Alerts Allergy Name Allergy Type Status Severity Reaction(s) Onset Date Inactive Date Treating Clinician Comments Source No Known Allergie s NA Active 2023-03 13:16: 00 [facility] No Known Allergie s NA Active 2023-03 13:52: 29 [facility] No Known Allergie s NA Active 2023-03 08:23: 10 [facility] No Known Allergie s NA Active 2023-03 08:16: 06 [facility] No Known Allergie s NA Active 2023-03 08:14: 12 [facility] No Known Allergie s NA Active 2023-03 11:17: 04 [facility] No Known Allergie s NA Active 2023-03 11:16: 49 [facility] No Known Allergie s NA Active 2023-03 11:16: 43 [facility] No Known Allergie s NA Active 2023-03 16:18: 37 [facility] NO KNOWN ALLERGIE S Drug Class Active [facility] Social History Social Habit Start Date Stop Date Quantity Comments Source Sex Assigned At [facility] Exposure to SARS-CoV-2 (event) Not sure [facility] ASSERTION Ronny munoz ([place]) Future intention Reported [facility] ([place]) Tobacco use and exposure 2020-02-01 00:00:00 2020-02-01 00:00:[address] [facility] Alcohol intake 2020-02-01 00:00:00 2020-02-01 00:00:00 Ex-drinker (finding) [facility] Smoking Status Start Date Stop Date Source Never smoker [facility] Unknown if ever smoked [facility] Medications Ordered Medication Name Filled Medication Name Start Date Stop Date Current Medication? Ordering Clinician Indication Dosage Frequency Signature (SIG) Comments Components Source Nitrofurant oin&Nit. Macrocryst (MACROBID) 100 mg capsule 2019-03 00:00: 00 Yes [id number] 100mg Take 1 capsule by mouth 2 (two) times daily. [facility] azithromyci n 500 mg tablet 2019-03 00:00: 00 Yes [id number] 1000mg Take 2 tablets by mouth daily. [facility] aripiprazol e (ABILIFY ORAL) 2019-03 16:55: 35 Yes Take by mouth. [facility] azithromyci n (ZITHROMAX) tablet 500 mg 10-17 00:15: 00 10-17 02:25 :00 No 500mg 500 mg, Oral, ONCE, 1 dose, Raymond 10/17/19 at 1915, BURT
Re ason for Anti-Infec tive: Documented Infection< br>Documen valerie Infection Site: Respirator y
Durat ion of Therapy: 7 days [facility] naloxone (NARCAN) injection 0.4 mg 10-17 00:15: 00 10-16 23:10 :00 No .4mg 0.4 mg, Slow IV Push, ONCE, 1 dose, Raymond 10/17/19 at 1915, STAT [facility] NaCl 0.9% (NS) bolus infusion 1,000 mL 10-16 21:00: 00 10-16 22:18 :00 No 1000mL at 999 mL/hr, 1,000 mL, IV Infusion, ONCE, 1 dose, Raymond 10/17/19 at 1600, BURT [facility] No known medications No Un shanel [facility] No known medications No Un sh[facility] Vital Signs Vital Name Observation Time Observation Value Comments S ource Systolic blood pressure 2020-02-01 16:51:00 101 [facility] Diastolic blood pressure 2020-02-01 16:51:00 70 mm[Hg[facility] Heart rate 2020-02-01 16:51:00 87 /min [facility] Body temperature 2020-02-01 16:51:[address] [facility] Respiratory rate 2020-02-01 16:51:00 18 /min [facility] Body height 2020-02-01 16:51:00 160 cm [facility] Body weight 2020-02-01 16:51:00 55.792 kg [facility] BMI 2020-02-01 16:51:00 21.79 kg/m2 [facility] Systolic blood pressure 2020-02-01 16:51:00 101 mm[Hg[facility] Diastolic blood pressure 2020-02-01 16:51:00 70 mm[Hg[facility] Heart rate 2020-02-01 16:51:00 87 /min Unive [facility] Body temperature 2020-02-01 16:51:[address] [facility] Respiratory rate 2020-02-01 16:51:00 18 /min [facility] Body height 2020-02-01 16:51:00 160 cm [facility] Body weight 2020-02-01 16:51:00 55.792 kg [facility] BMI 2020-02-01 16:51:00 21.79 kg/m2 [facility] Systolic blood pressure 2019-10-18 02:05:00 107 mm[Hg[facility] Diastolic blood pressure 2019-10-18 02:05:00 70 mm[Hg[facility] Heart rate 2019-10-18 02:05:00 95 /min Unive [facility] Respiratory rate 2019-10-18 02:05:00 9 /min [facility] Oxygen saturation in Arterial blood by Pulse oximetry 2019-10-18 02:05:00 100 /min [facility] Body temperature 2019-10-18 00:10:[address] [facility] Body weight 2019-10-17 20:44:00 63.504 kg [facility] Systolic blood pressure 2019-10-18 02:05:00 107 mm[Hg[facility] Diastolic blood pressure 2019-10-18 02:05:00 70 mm[Hg[facility] Heart rate 2019-10-18 02:05:00 95 /min [facility] Respiratory rate 2019-10-18 02:05:00 9 /min [facility] Oxygen saturation in Arterial blood by Pulse oximetry 2019-10-18 02:05:00 100 /min [facility] Body temperature 2019-10-18 00:10:[address] [facility] Body weight 2019-10-17 20:44:00 63.504 kg [facility] Procedures Procedure Date / Time Performed Performing Clinician Source CONSENT/REFUSAL FOR DIAGNOSIS AND TREATMENT 2020-02-01 16:26:11 Doctor Unassigned, Cornell [facility] ASSIGNMENT OF BENEFITS 2020-02-01 16:25:59 Docto r Unassigned, Cornell [facility] POCT TEST 2020-02-01 00:00:00 Adum, Kellie Amandeep [facility] POCT URINALYSIS W/O SPECIFIC GRAVITY 2020-02-01 00:00:00 Adum, Kellie Bernstein [facility] XR CHEST 1 VW 2019-10-17 22:12:24 Ree Arroyo [facility] COVID-19 (ID NOW RAPID TESTING) 2019-10-17 21:05:[address] [facility] CREATINE KINASE 2019-10-17 20:58:[address] [facility] TEST, SERUM 2019-10-17 20:58:[address] [facility] TROPONIN I 2019-10-17 20:58:00 Ree Arroyo [facility] HEPATIC FUNCTION PANEL (71817) (ALB,T.PRO,BILI T,BU/BC,ALT,AST,ALK PHOS) 2019-10-17 20:58:[address] [facility] BASIC METABOLIC PANEL (NA, K, CL, CO2, GLUCOSE, BUN, CREATININE, CA) 2019-10-17 20:58:[address] [facility] SALICYLATE 2019-10-17 20:58:00 Ree Arroyo [facility] CBC WITH DIFF 2019-10-17 20:58:00 Ree Arroyo [facility] PROTHROMBIN TIME / INR 2019-10-17 20:58:[address] [facility] ACTIVATED PARTIAL THRMPLAS YOSHI 2019-10-17 20:58:[address] [facility] N-TERMINAL PRO-BNP 2019-10-17 20:58:[address] [facility] EKG-12 LEAD 2019-10-17 20:54:33 Ree Arroyo [facility] Encounters Start Date/Time End Date/Time Encounter Type Admission Type Attending [facility] Facility Care Department Encounter ID Source 2024-01-23 08:14:00 2024-02-18 13:52:00 Outpatient Encounter 3 MARK AC [facility] [id number] [facility] 2020-03-13 00:00:00 2020-03-13 00:00:00 Telephone Adum, Kellie Slamon [facility] Building [id number] [id number] [id number] [id number] 2020-03-13 00:00:00 2020-03-13 00:00:00 Telephone Adum, Kellie Salmon [facility] Building [id number] [id number] 4.2.7.2.686 [id number] [facility] 2020-02-04 00:00:00 2020-02-04 00:00:00 Case Management Adum, Kellie Salmon [facility] Building [id number] [id number] 4.2.7.2.686 [id number] 2020-02-04 00:00:00 2020-02-04 00:00:00 Telephone Adum, Kellie Salmon [facility] Building [id number] [id number] 4.2.7.2.686 [id number] 2020-02-04 00:00:00 2020-02-04 00:00:00 Case Management [facility] [id number] 350.1.13.10 4.2.7.2.686 [id number] [facility] 2020-02-04 00:00:00 2020-02-04 00:00:00 Telephone Adum, Kellieheriberto Muse nal Building [id number] 350.1.13.10 4.2.7.2.686 [id number] [facility] 2020-02-03 00:00:00 2020-02-03 00:00:00 Case Management Adum, Kellie Muse nal Building 1.2.840.114 350.1.13.10 4.2.7.2.686 [id number] 2020-02-03 00:00:00 2020-02-03 00:00:00 Case Management Adum, Kellie Muse nal Building [id number] 350.1.13.10 4.2.7.2.686 [id number] [facility] 2020-02-01 11:43:58 2020-02-01 11:58:58 Proprietary Trader Visit 2, Adc Lab [facility] Miguel Muse [facility] Building 1.2.840.114 [id number] 4.2.7.2.686 [id number] 2020-02-01 11:43:58 2020-02-01 11:58:58 Proprietary Trader Visit 2, Adc Lab Adum, Kellie Muse nal Building 1.2.840.114 350.1.13.10 4.2.7.2.686 [id number] [facility] 2020-02-01 10:30:19 2020-02-01 11:39:38 Initial Visit Adum, Kellie Muse nal Building 1.2.840.114 350.1.13.10 4.2.7.2.686 [id number] 2020-02-01 10:30:19 2020-02-01 11:39:38 Initial Visit Adum, Kellie Muse nal Building 1.2.840.114 350.1.13.10 4.2.7.2.686 [id number] [facility] 2020-02-01 10:30:00 2020-02-01 10:30:00 Outpatient KELLIE WANG [facility] [id number] [facility] 2020-02-01 00:00:00 2020-02-01 00:00:00 Orders Only Doctor Unassigned, [facility] 1.2.840.114 350.1.13.10 4.2.7.2.686 [id number] 2020-02-01 00:00:00 2020-02-01 00:00:00 Orders Only Doctor Unassigned, Cornell [facility] 1.2.840.114 350.1.13.10 4.2.7.2.686 [id number] [facility] 2019-10-17 15:45:22 2019-10-17 21:48:00 Emergency [place] [facility] 1.2.840.114 350.1.13.10 4.2.7.2.686 [id number] 2019-10-17 15:45:22 2019-10-17 21:48:00 Emergency [facility]e [facility]royo [facility] 1.2.840.114 350.1.13.10 4.2.7.2.686 [id number] [facility] 2019-10-17 15:45:22 2019-10-17 15:45:22 Emergency X REE ARROYO [facility] ERT [id number] [facility] Results Test Description Test Time Test Comments Results Result Co mments Source APTIMA GONORRHEA/[id number] 23:11:00* Test Item Value Reference Range Interpretation Comme nts CHLAMYDIA TRACHOMATIS, KOLTON (test code = GENPROCH) Negative Negative NEISSERIA GONORRHOEAE, KOLTON (test code = GENPROGC) Negative Negative Performed at: - Lab[address] [id number] Financial Aid Counselor: Rodo Campo MD, Phone: [phone] Trichomonas vaginalis rRNA [Presence] in [id number] 09:30:00Negative [facility])RPR FOR SERUM [id number] 20:41:00* Test Item Value Reference Range Interpretation Comme nts RPR (test code = RPR) NONREACTIVE NONREACTIVE NR = NON-REACTIV E R = REACTIVE Reagin Ab [Presence] in Serum by [id number] 20:41:00[facility])ACUTE HEPATITIS [id number] 18:28:00* Test Item Value Reference Range Interpretation Comme nts HAAB,M (test code = HAAB,M) NEGATIVE NEGATIVE HBCABM (test code = HBCABM) NEGATIVE NEGATIVE A GRAYZONE resul t is presumptive evidence of IgM anti-HBc. Patients with specimens exhibiting swenson zone reactive test results should be retested at approximately one-week intervals. HEPBSAG (test code = HEPBSAG) NEGATIVE NEGATIVE Hepatitis B Surf jj Antigen is for screening purpose only. HEPHCV (test code = HEPHCV) NEGATIVE NEGATIVE Hepatitis C Anti body test is for screening purposes only. All reactives will be confirmed by additional testing. Acute hepatitis 2000 panel - Serum [id number] 18:28:00 NegativeNegativeNeg[facility]ER SCREEN FOR HIV 1/2 2024-01-23 16:36:00* Test Item Value Reference Range Interpretation Comme nts HIV 1/2 AB (test code = SCRN HIV) NEGATIVE NEGATIVE This test is us ed for SCREENING purposes only. All reactive results are prelimenary and confirmation results will follow. HIV 1+2 Ab [Units/volume] in [id number] 16:36:00Neg[facility])[id number] 14:48:00* Test Item Value Reference Range Interpretation Comme nts WBC (test code = WBC) 6.2 K/UL 3.5-10.9 RBC (test code = RBC) 4.89 M/UL 4.00-5.00 HGB (test code = HGB) 14.0 G/DL 11.5-15.5 HCT (test code = HCT) 43.7 % 34.0-46.0 MCV (test code = MCV) 89.4 FL 80.0-98.0 MCH (test code = MCH) 28.6 PG 28.0-32.0 MCHC (test code = MCHC) 32.0 G/DL 32.5-36.5 L RDW (test code = RDW) 13.1 % 11.5-14.5 PLT (test code = PLT) 395 K/UL 150-450 MPV (test code = MPV) 11.4 FL 7.4-10.4 H MANDIFF (test code = MANDIFF) NO SCAN (test code = SCAN) NO NEUT% (test code = NEUT%) 56.7 % 40.0-75.0 LYMPH% (test code = LYMPH%) 34.2 % 24.0-44.0 MONO% (test code = MONO%) 6.8 % 0.0-13.0 EOS% (test code = EOS%) 1.5 % 0-4 BASO % (test code = BASO%) 0.5 % 0.0-2.0 IG% (test code = IG%) 0.3 % 0-1 IG% = Metamyeloc ytes, Myelocytes, and Promyelocytes. (Immature neutrophils not including "bands".) > 3% IG indicates risk of sepsis NRBC% (test code = NRBC%) 0 % CBC W Auto Differential panel - [id number] 14:48:00* Test Item Value Reference Range Interpretation Comme nts Leukocytes [#/volume] in Blo od by Automated count (test code = 6690-2) 6.2 K/UL 3.5-10.9 N Erythrocytes [#/volume] in B lood (test code = 74292-5) 4.89 M/UL 4.0-5.0 N Hemoglobin A/Hemoglobin.tota l in Blood (test code = 4546-8) 14.0 G/DL 11.5-15.5 N Hematocrit [Volume Fraction] of Blood (test code = 71178-5) 43.7 % 34.0-46.0 N Erythrocyte mean corpuscular volume [Entitic volume] (test code = 04912-7) 89.4 FL 80.0-98.0 N Erythrocyte mean corpuscular hemoglobin [Entitic mass] (test code = 84679-6) 28.6 PG 28.0-32.0 N Erythrocyte mean corpuscular hemoglobin concentration [Mass/volume] (test code = 66668-9) 32.0 G/DL 32.5-36.5 L Erythrocyte distribution wid th [Ratio] (test code = 17805-3) 13.1 % 11.5-14.5 N Platelets [#/volume] in Bloo d (test code = 51173-2) 395.0 K/UL 150.0-450.0 N Platelet mean volume [Entiti c volume] in Blood by Automated count (test code = 17141-8) 11.4 FL 7.4-10.4 H Neutrophils.segmented/100 leukocytes in Blood (test code = 53146-4) 56.7 % 40.0-75.0 N Lymphocytes Variant/100 leuk ocytes in Blood (test code = 97032-1) 34.2 % 24.0-44.0 N Lymphocytes+Monocytes/100 leukocytes in Blood (test code = 4662-3) 6.8 % 0.0-13.0 N Eosinophils [#/volume] in Bl ood (test code = 22576-7) 1.5 % 0.0-4.0 N Basophils [#/volume] in Bloo d (test code = 60004-3) 0.5 % 0.0-2.0 N Immature granulocytes/100 leukocytes in Blood (test code = 27840-9) 0.3 % 0.0-1.0 N Nucleated erythrocytes [#/vo lume] in Blood (test code = 82109-6) 0.0 % N [facility])HEPATITIS C ANTIBODY [id number] 14:37:00* Test Item Value Reference Range Interpretation Comme nts SCRN HCV (test code = SCRN HCV) NEGATIVE NEGATIVE Hepatitis C Anti body test is for screening purposes only. All reactives will be confirmed by additional testing. Hepatitis C virus Ab [Presence] in [id number] 14:37:00Negative[facility])[id number] 13:35:00* Test Item Value Reference Range Interpretation Comme nts SODIUM (test code = NA) 138 MMOL/L 137-145 K+ (test code = KSERUM) 5.4 MMOL/L 3.5-5.1 H CHLORIDE (test code = CL) 104 MMOL/L 98-107 CO2 (test code = CO2) 31 MMOL/L 22-30 H BUN (test code = BUN) 17 MG/DL 7-17 CREA (test code = CREA) 0.8 MG/DL 0.7-1.2 GLUCOSE (test code = GLUCOSE) 66 MG/DL 70-99 L Fasting glucos e normal <100 MG/DL- [employer] recommendation CALCIUM (test code = CABLOOD) 9.0 MG/DL 8.4-10.2 TOTPROT (test code = TOTPROT) 8.1 G/DL 6.3-8.2 ALBUMIN (test code = ALBSERUM) 4.6 G/DL 3.5-5.0 BILITOT (test code = BILITOT) 0.6 MG/DL 0.2-1.3 AST (test code = AST) 26 U/L 15-46 PHOSALK (test code = PHOSALK) 75 U/L 38-126 ALTV (test code = ALTV) 16 U/L 13-69 GFR (test code = GFR) 104.0 mL/min/1.73m2 See_Comment A GFR of >90 mL/min/1.73m2 is considered normal. The GFR calculation on patients over 70 years of age is not validated by the senior sql server database developer and may not represent the patients true renal function. [Automated message] The system which generated this result transmitted reference range: 59-. The reference range was not used to interpret this result as normal/abnormal. CALCULATED ANION GAP (test code = ANIONGAP) 3 mmol/L 4-12 L "ANION GAP CALCULATION" "This calculation does not include K+. In renal failure patients, K+ should be used in the calculation". LIPID [id number] 13:35:00* Test Item Value Reference Range Interpretation Comme nts CHOLEST (test code = CHOLEST) 177 MG/DL 0-200 TRIGLYCE (test code = TRIGLYCE) 106 MG/DL 0-150 HDL (test code = HDL) 79 MG/DL 35-90 NEG ATIVE RISK FACTOR FOR HEART DISEASE IF HDL >/=60 mg/dl MAJOR RISK FACTOR FOR HEART DISEASE IF HDL <40 mg/dL CALC LDL (test code = CALC LDL) 77 MG/DL See_Comment [Automated Cerecor] The system which generated this result transmitted reference range: -100. The reference range was not used to interpret this result as normal/abnormal. VAP cholesterol panel - Serum or [id number] 13:31:00* Test Item Value Reference Range Interpretation Comme nts Cholesterol [Mass/volume] in Serum or Plasma (test code = 2093-3) 177.0 MG/DL 0.0-200.0 N Triglyceride [Mass/volume] in Serum or Plasma (test code = 2571-8) 106.0 MG/DL 0.0-150.0 N Lipoprotein.alpha [Mass/volume] in Serum or Plasma (test code = 2573-4) 79.0 MG/DL 35.0-90.0 N Cholesterol in LDL [Mass/volume] in Serum or Plasma by calculation (test code = 13789-6) 77.0 MG/DL See_Comment N [Automated Cerecor] The system which generated this result transmitted reference range: - 100 MG/DL. The reference range was not used to interpret this result as normal/abnormal. [facility])Comprehensive metabolic 2000 panel - Serum or P 2024-01-23 13:28:00* Test Item Value Reference Range Interpretation Comme nts Sodium [Moles/volume] in Blood (test code = 2947-0) 138.0 MMOL/L 137.0-145.0 N Potassium [Moles/volume] in Blood (test code = 6298-4) 5.4 MMOL/L 3.5-5.1 H Chloride [Moles/volume] in Blood (test code = 9-3) 104.0 MMOL/L 98.0-107.0 N Carbon dioxide, total [Moles/volume] in Serum or Plasma (test code = 2027-9) 31.0 MMOL/L 22.0-30.0 H Urea nitrogen [Mass/volume] in Serum or Plasma (test code = 3094-0) 17.0 MG/DL 7.0-17.0 N Creatinine [Mass/volume] in Blood (test code = 31375-5) 0.8 MG/DL 0.7-1.2 N Glucose [Mass/volume] in Blood (test code = 2339-0) 66.0 MG/DL 70.0-99.0 L Calcium [Mass/volume] in Serum or Plasma (test code = 58821-7) 9.0 MG/DL 8.4-10.2 N Protein [Mass/volume] in Serum or Plasma (test code = 2885-2) 8.1 G/DL 6.3-8.2 N Albumin [Presence] in Serum or Plasma (test code = 85431-8) 4.6 G/DL 3.5-5.0 N Bilirubin direct and total panel [Mass/volume] - Serum or Plasma (test code = 93908-1) 0.6 MG/DL 0.2-1.3 N Aspartate aminotransferase [Enzymatic activity/volume] in Serum or Plasma (test code = 1920-8) 26.0 U/L 15.0-46.0 N Alkaline phosphatase [Enzymatic activity/volume] in Serum or Plasma (test code = 6768-6) 75.0 U/L 38.0-126.0 N Alanine aminotransferase [Enzymatic activity/volume] in Serum or Plasma (test code = 1742-6) 16.0 U/L 13.0-69.0 N Estimated or measured glomerular filtration rate less than 50 percent [- Reported] (test code = 64768-4) 104.0 mL/min/1.73m 2 See_Comment N [Automated message] The system which generated this result transmitted reference range: 59 mL/min/1.73m2. The reference range was not used to interpret this result as normal/abnormal. Anion gap in Serum or Plasma (test code = 83061-0) 3.0 mmol/L 4.0-12.0 L [facility])Chlamydia trachomatis and Neisseria gonorrhoeae 2024-01-23 09:30:00NegativeNegativePark[facility] Center)POCT URINALYSIS W/O SPECIFIC [id number] 17:39:00* Test Item Value Reference Range Interpretation Comme nts POCT PH U (test code = 3254) 7 mg/dl 5-8 POCT U LEUK EST (test code = 3263) Trace Negative - Negative POCT U NIT (test code = 3262) Negative Negative - Negati ve POCT U PROT (test code = 3259) Trace Negative - Negat sera POCT U GLU (test code = 3256) Negative Negative - Negati ve POCT U KETONE (test code = 3258) Negative Negative - Neg ative POCT U BLD (test code = 3257) Negative Negative - Negati ve [facility] [id number] 17:15:00* Test Item Value Reference Range Interpretation Comme nts POCT PREG (test code = 1605) Negative On board controls acceptable with C Line (test code = 3574) Yes POCT PREG LOT # (test code = 3575) POCT PREG TEST DATE ( test code = 3576) [facility] 1 [id number] 22:38:16Streaky left retrocardiac opacities may represent infection and/oraspiration. [...] Correlate clinically.Preliminary Report Dictated by Resident: Marck Mcmanus MD., have reviewed this study and agree with theabove report. [facility]roponin [id number] 22:07:00* Test Item Value Reference Range Interpretation Comme nts TROPONIN I (test code = 6817727413) <0.012 See_Comment [Automated message] The system which generated this result transmitted reference range: <=0.034 ng/mL. The reference range was not used to interpret this result as normal/abnormal. INESSA (test code = INESSA) Equal or Less than 0.034 ng/ml---Normal ?Note: Cardiac troponin begins to [...] patient's use of biotin. ? Lab Interpretation (test code = 18736-4) Normal [facility]MINAL [id number] 22:04:00* Test Item Value Reference Range Interpretation Comme nts NT-proBNP (test code = 5613063792) 303 pg/mL See_Comment H [Automated message] The system which generated this result transmitted reference range: <=125. The reference range was not used to interpret this result as normal/abnormal. INESSA (test code = INESSA) Biotin has been reported to cause a negative bias, interpret results relative to patient's use of biotin. Lab Interpretation (test code = 58013-7) Abnormal [facility]ETAMINOPHEN2020-07-26 21:56:00* Test Item Value Reference Range Interpretation Comme nts ACETAMINOP (test code = 3398867353) <10.0 10-30 L INESSA (test code = INESSA) Toxic: Greater wendi n 200 ug/mL @ 4 hour post ingestion or greater than 50 ug/mL @ 12 hour post ingestion Lab Interpretation (test code = 75927-9) Abnormal [facility]ALIC[facility]ATE2020-07-26 21:56:00* Test Item Value Reference Range Interpretation Comme nts SALICYLATE (test code = [id number]) <10 mg/L INESSA (test code = INESSA) Therapeutic Range: ? Analgesic and Antipyretic Use ? 20-100 mg/L ? ? Anti-Inflammatory Use ? 100-250 mg/L Toxic Range: ? Greater than 300 mg/L [facility] (NA, K, CL, CO2, GLUCOSE, BUN, CREATININE, CA)2019-10-17 21:55:00* Test Item Value Reference Range Interpretation Comme nts NA (test code = 2050196388) 138 mmol/L 135-145 K (test code = 4201902532) 4.1 mmol/L 3.5-5 CL (test code = 7553265547) 102 mmol/L 98-108 CO2 TOTAL (test code = 1237853689) 26 mmol/L 23-31 AGAP (test code = 3807035365) 2-16 BUN (test code = 6857108536) 7 mg/dL 7-23 GLUCOSE (test code = 2548270317) 160 mg/dL 70-110 H CREATININE (test code = 2977746121) 0.90 mg/dL 0.5-1.04 CALCIUM (test code = 1213316037) 9.5 mg/dL 8.6-10.6 eGFR Calculation (Non-) (test code = 9330282512) mL/min/1.73m2 eGFR Calculation () (test code = 2766532683) mL/min/1.73m2 INESSA (test code = INESSA) Association of [...] or abnormalities in imaging tests). Lab Interpretation (test code = 39316-0) Abnormal [facility] (ALB, T.PRO, BILI T, BU/BC, ALT, AST, ALK PHOS)2019-10-17 21:55:00* Test Item Value Reference Range Interpretation Comme nts TOTAL BILI (test code = 2351680389) 0.4 mg/dL 0.1-1.1 BILI UNCON (test code = 4535771674) 0.6 mg/dL 0.1-1.1 BILI CONJ (test code = 4920264607) 0.0 mg/dL 0-0.3 T PROTEIN (test code = 8048206723) 7.5 g/dL 6.3-8.2 ALBUMIN (test code = 9077683270) 4.3 g/dL 3.5-5 ALK PHOS (test code = 7401179005) 69 U/L 34-122 ALTv (test code = 1742-6) 21 U/L 5-35 AST(SGOT) (test code = 1661196817) 55 U/L 13-40 H Lab Interpretation (test cod e = 95765-3) Abnormal [facility] [id number] 21:55:00* Test Item Value Reference Range Interpretation Comme [facility] CK (test code = 2166666820) 65 U/L 33-194 Lab Interpretation (test cod e = 69745-2) Normal [facility]regnancy Test, [id number] 21:51:00* Test Item Value Reference Range Interpretation Comme [facility] PREG SERUM (test code = 3015302219) Negative INESSA (test code = INESSA) Less than 10 IU/L. ?If low titer or ectopic is suspected, resubmit specimen in 48-[address] [facility] Hospital[facility]thrombin Time (PT) / [id number] 21:43:00 * Test Item Value Reference Range Interpretation Comme [facility] PROTIME PATIENT (test code = 5964-2) See_Comment [Automated messa ge] The system which generated this result transmitted reference range: 12.0 - 14.7 Seconds. The reference range was not used to interpret this result as normal/abnormal. INR (test code = 6301-6) Normal INR <1.1; Warfarin Therapeutic range 2.0 to 3.0 or 2.5 to 3.5, depending upon the indications. Lab Interpretation (test code = 40811-5) Normal [facility] Hospital[facility]PTT2020-07-26 21:37:00* Test Item Value Reference Range Interpretation Comme [facility] APTT Patient (test code = 3173-2) See_Comment [Automated message] The system which generated this result transmitted reference range: 23 - 38 Seconds. The reference range was not used to interpret this result as normal/abnormal. INESSA (test code = INESSA) The [facility] patient population mean normal value for aPTT is 30 seconds. Lab Interpretation (test code = 93003-9) Normal [facility]OVID[facility] (ID NOW RAPID TESTING)2019-10-17 21:33:00* Test Item Value Reference Range Interpretation Comme [facility] SARS-CoV-2 Rapid ID NOW (test code = 18520-0) Not Detected Not Detected INESSA (test code = INESSA) ID NOW COVID-19 As say is an isothermal nucleic acid amplification test intended for the qualitative detection of nucleic acid from SARS-CoV-2 viral RNA in nasopharyngeal (COMPANY SECRETARY) specimens. It is used under Emergency Use [...] patient testing if clinically indicated. Lab Interpretation (test code = 56755-6) Normal [facility] with [id number] 21:19:00* Test Item Value Reference Range Interpretation Comme nts WBC (test code = 6690-2) See_Comment [Automated Cerecor] The system which generated this result transmitted reference range: 4.30 - 11.10 10*3/?L. The reference range was not used to interpret this result as normal/abnormal. RBC (test code = 789-8) See_Comment [Automated Cerecor] The system which generated this result transmitted reference range: 3.93 - 5.25 10*6/?L. The reference range was not used to interpret this result as normal/abnormal. HGB (test code = 718-7) 14.4 g/dL 11.6-15 HCT (test code = 4544-3) 44.5 % 35.7-45.2 MCV (test code = 787-2) 90.1 fL 80.6-95.5 MCH (test code = 785-6) 29.1 pg 25.9-32.8 MCHC (test code = 786-4) 32.4 g/dL 31.6-35.1 RDW-SD (test code = 28886-4) 42.4 fL 39-49.9 RDW-CV (test code = 788-0) 12.7 % 12-15.5 PLT (test code = 777-3) See_Comment [Automated Cerecor] The system which generated this result transmitted reference range: 166 - 358 10*3/?L. The reference range was not used to interpret this result as normal/abnormal. MPV (test code = 50060-6) 10.9 fL 9.5-12.9 NRBC/100 WBC (test code = 9815946312) See_Comment [Automated me ssage] The system which generated this result transmitted reference range: 0.0 - 10.0 /100 WBCs. The reference range was not used to interpret this result as normal/abnormal. NRBC x10^3 (test code = 5858596374) <0.01 See_Comment [Automated messa ge] The system which generated this result transmitted reference range: 10*3/?L. The reference range was not used to interpret this result as normal/abnormal. GRAN MAT (NEUT) % (test code = 770-8) 38.0 % IMM GRAN % (test code = 2654074488) 0.50 % LYMPH % (test code = 736-9) 51.1 % MONO % (test code = 5905-5) 6.8 % EOS % (test code = 713-8) 2.8 % BASO % (test code = 706-2) 0.8 % GRAN MAT x10^3(ANC) (test code = 4241416663) 2.98 10*3/uL 1.88-7.09 IMM GRAN x10^3 (test code = 3781313755) 0.04 10*3/uL 0-0.06 LYMPH x10^3 (test code = 731-0) 4.01 10*3/uL 1.32-3.29 H MONO x10^3 (test code = 742-7) 0.53 10*3/uL 0.33-0.92 EOS x10^3 (test code = 711-2) 0.22 10*3/uL 0.03-0.39 BASO x10^3 (test code = 704-7) 0.06 10*3/uL 0.01-0.07 Lab Interpretation (test code = 73848-6) Abnormal [facility] Notes Date/Time Note Provider Source [facility]
--- NOTE | 2024-10-27 14:50 | EDPHYS ---
Physician Documentation [facility] Name: Anusha Gunn Age: 29 yrs Sex: Female : 1995 Arrival Date: 10/27/2024 Time: 14:26 Bed 15 Private MD: ED Physician Charlette Hitchcock HPI: 10/27 14:39 This 29 yrs old Female presents to ER via Ambulatory with complaints of Foreign body In cr8 Vagina - sponge. 14:39 Patient is a 29-year-old female comes emergency room because she has a make-up sponge cr8 in her vagina. States she place it there because she was on her menstrual cycle. States has been there since Friday. Denies abdominal pain, vaginal discharge, fever, chills, dysuria. Has a history of seizures but not take medications for it. States she has done this before and has been able to remove it but has not been able to this time.. 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 - Infectious Disease History:: Denies. - Social history:: Smoking status: Patient denies any tobacco usage or history of. ROS: 14:42 : Positive for Foreign body, Negative for vaginal discharge, cr8 15:21 All other systems are negative, cr8 Exam: 14:42 Constitutional: The patient appears in no acute distress, alert, awake, comfortable, cr8 15:05 Constitutional: This is a well developed, well nourished patient who is awake, alert, cr8 and in no acute distress. 15:05 Abdomen/GI: Exam negative for discomfort, distension, 15:05 : Pelvic Exam: External exam: is normal, Speculum exam: no cervicitis, Foreign body, make-up sponge, discharge, malodorous, white, a female bit bender was present for the exam, Vital Signs: 14:38 BP 104 / 88; Pulse 77; Resp 18; Temp 98.4; Pulse Ox 97% ; Weight 63.5 kg; Height 5 ft. me1 3 in. ; Pain 0/10; 14:38 Body Mass Index 24.80 (63.50 kg, 160.02 cm) me1 14:38 Pain Scale: Adult me1 Procedures: 15:04 Performed pelvic exam. Removed make-up sponge from the vagina. It was an intact on cr8 removal. There was some foul odor. Small amount of white discharge. No evidence of cervicitis. No evidence of retained foreign bodies after the sponge was removed.. MDM: 14:46 Medical Screening Exam initiated cr8 14:54 Data reviewed: vital signs, nurses notes. ED course: Patient came in for vaginal cr8 foreign body. Considered toxic shock syndrome. However patient does not have any fever vomiting systemic symptoms or vaginal discharge. Considered vaginitis but there is no vaginal discharge or evidence of infection. Patient is stable. She does not have any abdominal pain or other symptoms. Will go ahead and place patient on cephalexin for 7 days. Advised to avoid using sponges in the future and discussed toxic shock syndrome. No emergent condition identified at time of discharge. Patient's remained stable.. Administered Medications: No medications were administered Disposition Summary: 10/27/24 14:49 Discharge Ordered Notes: Location: Home cr8 Condition: Stable cr8 Diagnosis - Foreign body in vulva and vagina cr8 Followup: cr8 - With: Private Physician - When: 2 - 3 days - Reason: Recheck today's complaints, Continuance of care Followup: cr8 - With: Emergency Department - When: As needed - Reason: Worsening of condition Discharge Instructions: - Discharge Summary Sheet cr8 - Vaginal Foreign Body cr8 Forms: - Medication Reconciliation Form cr8 - Antibiotic Education cr8 - Patient Portal Instructions cr8 - Leadership Thank You Letter cr8 Prescriptions: - Cephalexin 500 mg Oral capsule - take 1 capsule ORAL route every 6 hours for 7 days; 40 capsule; Refills: 0, cr8 Product Selection Permitted Signatures: Pricila Beatty RN RN me1 Hilario Haque NP ELECTRICAL SUBCONTRACTOR cr8 Corrections: (The following items were deleted from the chart) 15:21 14:39 Patient is a 29-year-old female comes emergency room because she has a make-up cr8 sponge in her vagina. States she place it there because she was on her menstrual cycle. States has been there since Friday. Denies abdominal pain, vaginal discharge, fever, dysuria. Has a history of seizures but not take medications for it. States she has done this before and has been able to remove it but has not been able to this time.. cr8
--- NOTE | 2024-10-27 14:50 | ER ---
Nurse's Notes [facility] Name: Anusha Gunn Age: 29 yrs Sex: Female : 1995 Arrival Date: 10/27/2024 Time: 14:26 Bed 15 Private MD: Diagnosis: Foreign body in vulva and vagina Presentation: 10/27 14:38 Chief complaint: Patient states: she put a makeup sponge in her vagina before sex on me1 Friday because she is on her period and she cant get it out. Denies fever. Denies vaginal discharge. Coronavirus screen: Vaccine status: Patient reports being unvaccinated. Ebola Screen: No symptoms or risks identified at this time. Initial Sepsis Screen: Does the patient meet any 2 criteria? No. Patient's initial sepsis screen is negative. Does the patient have a suspected source of infection? No. Patient's initial sepsis screen is negative. Risk Assessment: Do you want to hurt yourself or someone else? Patient reports no desire to harm self or others. Onset of symptoms was October 23, 2024. 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 - Infectious Disease History:: Denies. - Social history:: Smoking status: Patient denies any tobacco usage or history of. Screenin:39 [facility] ED Fall Risk Assessment (Adult) History of falling in the last 3 months, kc6 including since admission No falls in past 3 months (0 pts) Confusion or Disorientation No (0 pts) Intoxicated or Sedated No (0 pts) Impaired Gait No (0 pts) Mobility Assist Device Used No (0 pt) Altered Elimination No (0 pt) Score/Fall Risk Level 0 - 2 = Low Risk Oriented to surroundings. Abuse screen: Denies threats or abuse. Denies injuries from another. Nutritional screening: No deficits noted. Tuberculosis screening: No symptoms or risk factors identified. Assessment: 14:39 General: Appears in no apparent distress. comfortable, well groomed, well developed, kc6 Behavior is calm, cooperative, appropriate for age. Pain: Complains of pain in pelvis Quality of pain is described as crampy, dull. Neuro: Level of Consciousness is awake, alert, obeys commands, Oriented to person, place, time, situation, Appropriate for age. Cardiovascular: Capillary refill < 3 seconds. Respiratory: Airway is patent Trachea midline Respiratory effort is even, unlabored, Respiratory pattern is regular, symmetrical. GI: No signs and/or symptoms were reported involving the gastrointestinal system. : Denies discharge, vaginal bleeding. EENT: No signs and/or symptoms were reported regarding the EENT system. Derm: No signs and/or symptoms reported regarding the dermatologic system. Skin is intact, is healthy with good turgor, Skin is pink, warm \T\ dry. Musculoskeletal: No signs and/or symptoms reported regarding the musculoskeletal system. Circulation, motion, and sensation intact. Range of motion: intact in all extremities. Vital Signs: 14:38 BP 104 / 88; Pulse 77; Resp 18; Temp 98.4; Pulse Ox 97% ; Weight 63.5 kg; Height 5 ft. me1 3 in. ; Pain 0/10; 14:38 Body Mass Index 24.80 (63.50 kg, 160.02 cm) me1 14:38 Pain Scale: Adult me1 ED Course: 14:28 Patient arrived in ED. im 14:30 Hilario Haque NP is PHCP. cr8 14:30 Charlette Hitchcock MD is Attending Physician. cr8 14:37 Elzbieta Kumar RN is Primary Nurse. kc6 14:39 Triage completed. me1 14:39 Arm band placed on Patient placed in an exam room. me1 14:39 Patient has correct armband on for positive identification. Placed in gown. Bed in low kc6 position. Call light in reach. Side rails up X 1. Adult w/ patient. Pulse ox on. NIBP on. Door closed. Noise minimized. Lights dimmed. Warm blanket given. Pillow given. Verbal reassurance given. 14:39 Patient maintains SpO2 saturation greater than 95% on room air. kc6 15:03 Assist provider with pelvic exam: Set up pelvic tray. Performed by Hilario Haque kc6 LEASING SPECIALIST Patient tolerated well. Removal of Foreign body removed makeup sponge from the vagina using Alligator clamps, Patient tolerated well. 15:21 Patient did not have IV access during this emergency room visit. kc6 Administered Medications: No medications were administered Medication: 15:21 VIS not applicable for this client. kc6 Outcome: 14:49 Discharge ordered by MD. sahu 15:21 Discharged to home ambulatory, kc6 15:21 Condition: improved 15:21 Discharge instructions given to patient, Instructed on discharge instructions, follow up and referral plans. medication usage, safe sex practices, Demonstrated understanding of instructions, follow-up care, medications, Prescriptions given X 1, 15:22 Patient left the ED. kc6 Signatures: Elzbieta Kumar RN RN kc6 Marci Woods Michelle, RN RN me1 Hilario Haque NP LEASING SPECIALIST cr8
[2024-10-27 15:27] VITALS: BP 104/88; TEMP 98.4; O2SAT 97
== END 2024-10-27 15:22 | disposition home or self-care (01) ==
LOC: ER 14:26
DX: T19.2XXA Foreign body in vulva and vagina, initial encounter (principal)
CPT/HCPCS: 99284